=== PATIENT | female | born 1990 | race Caucasian/White ===

== ENCOUNTER 2016-06-25 12:20 | Emergency (ER) | payer OTHER ==
[2016-06-25] MEDS ORDERED: Ketorolac INJ* 60 MG/2 ML VIAL IM ONE (12:47)
--- NOTE | 2016-06-25 12:47 | UC ---
UC Dental HPI - HPI Summary HPI Summary: Right upper dental pain after eating this morning and getting food in a cavity - History of Current Complaint Chief Complaint: UCDentalProblem Stated Complaint: DENTAL COMPLAINT Time Seen by Provider: 06/25/16 12:33 Hx Obtained From: Patient Hx Last Menstrual Period: 03/15/2016 ?: No Onset/Duration: Sudden Onset, Lasting Hours - 4, Still Present Severity: Severe Pain Intensity: 8 Pain Scale Used: 0-10 Numeric Aggravating: Chewing Alleviating: Nothing - Tried 400 mg Ibuprofen this AM Related History: Previous Dental Care on Same Tooth - Allergies/Home Medications Allergies/Adverse Reactions: Allergies Allergy/AdvReac Type Severity Reaction Status Date / Time Latex Allergy Intermediate Hives Verified 06/25/16 12:53 Ciprofloxacin [From Cipro] Allergy Itching Verified 06/25/16 12:53 PMH/Surg Hx/FS Hx/Imm Hx Previously Healthy: No Endocrine History Of: Denies: Diabetes, Thyroid Disease Cardiovascular History Of: Denies: Cardiac Disorders, Hypertension, Pacemaker/ICD, Congestive Heart Failure Respiratory History Of: Reports: Asthma - albuterol MDI as needed Denies: COPD GI/ History Of: Denies: Gastroesophageal Reflux, Ulcer, Renal Disease Neurological History Of: Denies: CVA, Dementia, Seizures Psychological History Of: Reports: Anxiety, Depression - started celexa this Other History Of: Negative For: Anticoagulant Therapy - Surgical History Surgical History: Yes Surgery Procedure, Year, and Place: Gall Bladder. Tonsillectomy & Adenoidectomy. MOLE REMOVED FROM LOWER BACK - Family History Known Family History: Positive: Cardiac Disease, Hypertension - Social History Occupation: Employed Part-time - at [employer] Lives: With Family Alcohol Use: Occasionally Substance Use Type: None Smoking Status (MU): Never Smoked Tobacco Have You Smoked in the Last Year: No - Immunization History Most Recent Influenza Vaccination: 2014 Most Recent Tetanus Shot: 01/2012 Review of Systems Constitutional: Negative Skin: Negative Eyes: Negative ENT: Dental Pain Respiratory: Negative Cardiovascular: Negative Gastrointestinal: Negative Genitourinary: Negative Motor: Negative Neurovascular: Negative Musculoskeletal: Negative Neurological: Negative Psychological: Negative All Other Systems Reviewed And Are Negative: Yes Physical Exam Triage Information Reviewed: Yes Appearance: Well-Appearing, No Pain Distress, Well-Nourished Vital Signs Reviewed: Yes Eye Exam: Normal Eyes: Positive: Conjunctiva Clear ENT Exam: Normal ENT: Positive: Normal ENT inspection, Hearing grossly normal, Pharynx normal, TMs normal. Negative: Nasal congestion, Nasal drainage, Tonsillar swelling, Tonsillar exudate, Trismus, Muffled/hoarse voice Dental Exam: Other - braces on Dental: Positive: Gross Decay/Caries @ - right upper back. Negative: Abscess @ , Cellulitis @, Cervical Lymphadenopathy, Bleeding Neck exam: Normal Neck: Positive: Supple, Nontender, No Lymphadenopathy Respiratory Exam: Normal Respiratory: Positive: Chest non-tender, Lungs clear, Normal breath sounds, No respiratory distress Cardiovascular Exam: Normal Cardiovascular: Positive: RRR, No Murmur, Pulses Normal, Brisk Capillary Refill Musculoskeletal Exam: Normal Musculoskeletal: Positive: Strength Intact, ROM Intact, No Edema Neurological Exam: Normal Neurological: Positive: Alert, Muscle Tone Normal Psychological Exam: Normal Skin Exam: Normal Dental Complaint Course/Dx - Course Course Of Treatment: Pain control, follow with dentist CHANDLER, rest off work today - Differential Dx/Diagnosis Differential Diagnosis/Dx: Dental Caries, Gingivitis, Odontogenic Pain Provider Diagnoses: right upper molar dental pain and caries Discharge - Discharge Plan Condition: Stable Disposition: HOME Prescriptions: HYDROcodone/ACETAMIN 5-325 MG* [[place] 5-325 TAB*] 1 tab PO Q6H PRN #6 tab MDD 4 PRN Reason: pain Ibuprofen TAB* [Motrin TAB* 800 MG] 800 mg PO Q8H PRN #40 tab PRN Reason: Pain Patient Education Materials: Dental Caries (ED), Toothache (ED) Forms: *Work Release Referrals: Jabier Gamez MD [Primary Care Provider] - If Needed Additional Instructions: Follow with you dentist CHANDLER
[2016-06-25] MEDS ORDERED: HYDROcodone/ACETAMIN 5-325 MG* 1 TAB PO ONE (12:48)
[2016-06-25 12:53] VITALS: BP 121/75
== END 2016-06-25 13:46 | disposition home or self-care (01) ==
LOC: UCEAST 12:20
DX: K02.9 Dental caries, unspecified (principal); Z88.1 Allergy status to other antibiotic agents
CPT/HCPCS: 96372; 99212; G0463; J1885

== ENCOUNTER 2016-06-25 20:23 | Emergency (ER) | payer OTHER ==
[2016-06-25 20:38] VITALS: BP 124/81
--- NOTE | 2016-06-25 20:47 | UC ---
Dental HPI - HPI Summary HPI Summary: The patient comes in today for: 1. Dental pain: Onset: Started this morning. Palliative/provocative: Hot and cold liquids makes it worse. Vicodin helped. Quality: [place] Region: Upper right tooth pain. Severity: 03/04 Time: Constant. Associated symptoms: Previous treatment: She was seen today, this morning by Chrissy Patricio who gave her a ketoralac injection, and a prescription for hydrocodone/ acetaminophen and ibuprofen. She took 800 mg at 4 PM and and two of the hydrocodone/acetaminophen. Fever: None. Dental care: She was supposed to be seen today at 4 PM, but the dentist [facility] said she needed a root canal. But her insurance did not approve it. She wants to check to see if she can just get the tooth pulled at this point. * - History of Current Complaint Chief Complaint: UCDentalProblem Stated Complaint: DENTAL PAIN Time Seen by Provider: 06/25/16 20:39 Hx Obtained From: Patient Hx Last Menstrual Period: 05/31/16 ?: No - Allergies/Home Medications Allergies/Adverse Reactions: Allergies Allergy/AdvReac Type Severity Reaction Status Date / Time Latex Allergy Intermediate Hives Verified 06/25/16 20:38 Ciprofloxacin [From Cipro] Allergy Itching Verified 06/25/16 20:38 PMH/Surg Hx/FS Hx/Imm Hx Previously Healthy: No Endocrine History Of: Denies: Diabetes, Thyroid Disease, Hyperthyroidism, Hypothyroidism, Dyslipidemia Cardiovascular History Of: Denies: Cardiac Disorders, Hypertension, Pacemaker/ICD, Myocardial Infarction , Congestive Heart Failure, Atrial Fibrillation, Deep Vein Thrombosis, Bleeding Disorders Respiratory History Of: Reports: Asthma - albuterol MDI as needed Denies: COPD, Bronchitis, Pneumonia, Pulmonary Embolism GI/ History Of: Denies: Gastroesophageal Reflux, Ulcer, Gastrointestinal Bleed, Gall Bladder Disease, Kidney Stones, Diverticulitis, Renal Disease, Urosepsis Neurological History Of: Denies: TIA, CVA, Dementia, Seizures, Migraine Psychological History Of: Reports: Anxiety, Depression - started celexa this Denies: Bipolar Disorder, Schizophrenia, Post Traumatic Stress Disorder Cancer History Of: Denies: Lung Cancer, Colorectal Cancer, Breast Cancer, Prostate Cancer, Cervical Cancer Other History Of: Negative For: HIV, Hepatitis B, Hepatitis C, Anticoagulant Therapy - Surgical History Surgical History: Yes Surgery Procedure, Year, and Place: Gall Bladder. Tonsillectomy & Adenoidectomy. MOLE REMOVED FROM LOWER BACK - Family History Known Family History: Positive: Cardiac Disease, Hypertension - Social History Occupation: Employed Full-time Alcohol Use: Occasionally Substance Use Type: None Smoking Status (MU): Never Smoked Tobacco Have You Smoked in the Last Year: No - Immunization History Most Recent Influenza Vaccination: 2014 Most Recent Tetanus Shot: 01/2012 Review of Systems Constitutional: Negative Skin: Negative Eyes: Negative ENT: Negative Respiratory: Negative Cardiovascular: Negative Gastrointestinal: Negative Genitourinary: Negative All Other Systems Reviewed And Are Negative: Yes Physical Exam Triage Information Reviewed: Yes Appearance: Well-Appearing, Well-Nourished, Ill-Appearing, Pain Distress - She has reduced animation, and lack of facial expression. Vital Signs: Initial Vital Signs Temp 98.9 F 06/25/16 20:33 Pulse 102 06/25/16 20:33 Resp 20 06/25/16 20:33 BP 124/81 06/25/16 20:33 Pulse Ox 100 06/25/16 20:33 Vital Signs Reviewed: Yes Eyes: Positive: Conjunctiva Clear. Negative: Discharge ENT: Positive: Hearing grossly normal. Negative: Pharyngeal erythema, Nasal congestion, Nasal drainage, TM bulging, TM dull, TM red, Tonsillar swelling, Tonsillar exudate Dental: Positive: Other: - #3 tooth is tender to percussion. Filling seen.. Negative: Gross Decay/Caries @, Dental Fracture @ Neck: Positive: Supple, Nontender, No Lymphadenopathy, Nuchal Rigidity Respiratory: Positive: Lungs clear, No respiratory distress, No accessory muscle use. Negative: Crackles, Wheezing Cardiovascular: Positive: RRR, No Murmur Abdomen Description: Positive: Nontender, No Organomegaly, Soft. Negative: Distended, Guarding Musculoskeletal: Positive: Strength Intact, ROM Intact Neurological: Positive: Alert, Muscle Tone Normal Psychological: Positive: Normal Response To Family, Age Appropriate Behavior, Consolable Skin: Negative: rashes, breakdown Dental Complaint Course/Dx - Course Course Of Treatment: Patient was told that she will probably not be completely free of pain until she has definitive dental care of her tooth. She was told that one 800 mg ibuprofen will not reduce the swelling of the infected tooth and that she has to take it regularly. To get her started in edema reduction, she will be given an injection of solumedrol. She is to take the Augmentin and continue the ibuprofen to keep the inflammation reduced. It is too early to give her any more narcotic as she already took two hydrocodone/acetaminophen pills at 6 PM and the next one woudl not be due until midnight. - Differential Dx/Diagnosis Provider Diagnoses: Pulpitis of #3 tooth Discharge - Discharge Plan Condition: Stable Disposition: HOME Patient Education Materials: Toothache (ED) Additional Instructions: See your family dentist as soon as you can for definitive dental care.
[2016-06-25] MEDS ORDERED: Amoxicillin/Clavulanate TAB* 875 MG PO ONE (21:03)
[2016-06-25] MEDS ORDERED: methylPREDNISolone 125 MG* 2 ML VIAL IM ONE (21:03)
== END 2016-06-25 21:28 | disposition home or self-care (01) ==
LOC: UCEAST 20:23
DX: K04.01 Reversible pulpitis (principal)
CPT/HCPCS: 96372; 99212; A9270-GY; G0463; J2930

== ENCOUNTER 2016-07-18 08:51 | Emergency (ER) | payer OTHER ==
[2016-07-18 09:41] VITALS: BP 115/80
--- NOTE | 2016-07-18 11:08 | UC ---
- HPI Summary HPI Summary: TESTED POSITIVE FOR LAST WEEK. OVER LAST FOUR DAYS HAS HAD WORSENING ABDOMINAL CRAMPING. 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 Negative: Appetite, Back Pain, Fever, Genital Swelling or Blisters, Nausea, Vaginal Bleeding or Discharge, Vomiting - Assessment Hx Now: Yes SAB: 1 IEA: 0 Hx Hysterectomy: No - Additional Pertinent History Maternal Blood Type and Rh: O Positive - Allergies/Home Medications Allergies/Adverse Reactions: Allergies Allergy/AdvReac Type Severity Reaction Status Date / Time Latex Allergy Intermediate Hives Verified 06/25/16 20:38 Ciprofloxacin [From Cipro] Allergy Itching Verified 06/25/16 20:38 PMH/Surg Hx/FS Hx/Imm Hx Previously Healthy: Yes Endocrine/Hematology History: Denies: Hx Anticoagulant Therapy, Hx Diabetes, Hx Thyroid Disease Cardiovascular History: Denies: Hx Congestive Heart Failure, Hx Deep Vein Thrombosis, Hx Hypertension , Hx Myocardial Infarction, Hx Pacemaker/ICD Respiratory History: Reports: Hx Asthma - albuterol MDI as needed Denies: Hx Chronic Obstructive Pulmonary Disease (COPD), Hx Lung Cancer, Hx Pneumonia, Hx Pulmonary Embolism GI History: Denies: Hx Gall Bladder Disease, Hx Gastrointestinal Bleed, Hx Ulcer, Hx Urosepsis, Other GI Disorders History: Reports: Other Problems/Disorders - OVARIAN CYST Denies: Hx Kidney Stones, Hx Renal Disease Sensory History: Denies: Hx Hearing Aid Neurological History: Denies: Hx Dementia, Hx Migraine, Hx Seizures, Hx Transient Ischemic Attacks (TIA) Psychiatric History: Reports: Hx Anxiety, Hx Depression - started celexa this , Other Psychiatric Issues/Disorders - anxiety on celexa but pt inconsistant with taking Denies: Hx Panic Disorder, Hx Schizophrenia, Hx Bipolar Disorder, Hx Substance Abuse - Surgical History Surgery Procedure, Year, and Place: Gall Bladder. Tonsillectomy & Adenoidectomy. MOLE REMOVED FROM LOWER BACK - Immunization History Date of Tetanus Vaccine: Unknown Date of Influenza Vaccine: None Infectious Disease History: No Infectious Disease History: Denies: Hx Clostridium Difficile, Hx Hepatitis, Hx Human Immunodeficiency Virus (HIV), Hx of Known/Suspected MRSA, Hx Shingles, Hx Tuberculosis, Hx Known/ Suspected VRE, Hx Known/Suspected VRSA, History Other Infectious Disease, Traveled Outside the [place] in Last 30 Days - Family History Known Family History: Positive: Cardiac Disease, Hypertension - Social History Alcohol Use: Occasionally Substance Use Type: Reports: None Smoking Status (MU): Never Smoked Tobacco Have You Smoked in the Last Year: No Review of Systems Constitutional: Negative Skin: Negative Eyes: Negative ENT: Negative Respiratory: Negative Cardiovascular: Negative Gastrointestinal: Abdominal Pain Genitourinary: Urgency Motor: Negative Neurovascular: Negative Musculoskeletal: Negative Neurological: Negative Psychological: Negative All Other Systems Reviewed And Are Negative: Yes Physical Exam - Physical Exam Triage Information Reviewed: Yes Vital Signs Reviewed: Yes Appearance: Positive: Well-Appearing Eyes: Positive: Normal ENT: Positive: Normal ENT inspection, Pharynx normal, TMs normal Neck: Positive: Supple, Nontender, No Lymphadenopathy Respiratory/Lung Sounds: Positive: Clear to Auscultation, Breath Sounds Present , Decreased Breath Sounds Cardiovascular: Positive: Normal, RRR, Pulses are Symmetrical in both Upper and Lower Extremities Abdomen Description: Positive: No Organomegaly, Soft. Negative: Nontender - TENDERNESS AT SUPRAPUBIC ASPECT OF ABDOMEN, CVA Tenderness (R), CVA Tenderness ( L) Bowel Sounds: Positive: Present Musculoskeletal: Positive: Normal Neurological: Positive: Normal Psychiatric: Positive: Normal - Vaginal Assessment Presentation Comment: cephalic Course/Dx - Differential Diagnosis/HQI/PQRI: Missed , Spontaneous , Threatened , Ectopic , /Embryonic Demise, First Trimester Bleeding, Early , Round Ligament Pain, UTI - Diagnoses Provider Diagnoses: Urinary tract infection, Abdominal cramping - Provider Notifications Discussed Care Of Patient With: ALBAN JOY Time Discussed With Above Provider: 10:30 Instructed by Provider To: Will See In ED Discharge - Discharge Plan Condition: Stable Disposition: HOME Prescriptions: Nitrofurantoin Macrocrystals* [Macrodantin*] 100 mg PO BID #14 cap Patient Education Materials: Abdominal Pain (ED), Urinary Tract Infection in (ED) Referrals: Jabier Gamez MD [Primary Care Provider] -
== END 2016-07-18 10:44 | disposition home or self-care (01) ==
LOC: UCEAST 08:51
DX: O23.41 Unspecified infection of urinary tract in pregnancy, first trimester (principal); Z3A.00 Weeks of gestation of pregnancy not specified; Z88.1 Allergy status to other antibiotic agents; Z91.040 Latex allergy status; O34.81 Maternal care for other abnormalities of pelvic organs, first trimester; N94.89 Other specified conditions associated with female genital organs and menstrual cycle
CPT/HCPCS: 81002; 81025; 87086; 99212; G0463

== ENCOUNTER 2016-07-18 11:04 | Emergency (ER) | payer OTHER ==
[2016-07-18] MEDS ORDERED: NS 0.9% 1000 ML* 1,000 ML IV ONE (12:20)
[2016-07-18] MEDS ORDERED: HYDROcodone/ACETAMIN 5-325 MG* 1 TAB PO ONE (12:37)
[2016-07-18] MEDS ORDERED: Metoclopramide IV* 5 MG/ML 2 ML VIAL IV ONE (12:38)
[2016-07-18 12:52] LABS: Urine Bacteria Absent (Absent); Urine Bilirubin Negative (Negative); Urine Glucose Negative (Negative); Urine Nitrite Negative (Negative)
[2016-07-18 13:43] LABS: Hematocrit 41 % (35-47); Hemoglobin 13.9 g/dl (12.0-16.0); Mean Corpuscular HGB Conc 34 g/dl (31-36); Mean Corpuscular Hemoglobin 30 pg (27-31); Mean Corpuscular Volume 90 fL (80-97); Mean Platelet Volume 9 um3 (7.4-10.4); Red Blood Count 4.62 10^6/ul (4.0-5.4); Red Cell Distribution Width 14 % (10.5-15); White Blood Count 8.2 10^3/ul (3.5-10.8)
--- NOTE | 2016-07-18 13:48 | RAD ---
HISTORY: Vaginal bleeding, early COMPARISONS: December 16, 2014 TECHNIQUE: Multiple transverse and longitudinal ultrasound images were obtained of the pelvis using grayscale, color Doppler, spectral Doppler imaging and M-Mode Doppler imaging using the endovaginal transducer. FINDINGS: UTERUS: The uterus is normal in shape, size, contour, and echotexture. GESTATION: There is a single live intrauterine gestation. The crown-rump length measures 0.25 cm for a gestational age of 5 weeks and 6 days. The HERI is March 11, 2017. cardiac motion is detected at a rate of 111 beats per minute. Gross movement is identified. anatomy cannot be assessed secondary to early dates. The amniotic fluid is qualitatively normal. There is small subchorionic hemorrhage measuring 1.5 x 0.4 x 0.8 CUL-DE-SAC: There is no free fluid within the cul-de-sac. RIGHT OVARY: The right ovary measures 2.3 x 1.3 x 1.6 cm. Normal arterial and venous waveforms are identifiable within the ovary on spectral Doppler imaging. LEFT OVARY: The left ovary measures 3.4 x 2.4 x 2.7 cm. Normal arterial and venous waveforms are identifiable within the ovary on spectral Doppler imaging. An involuting follicular cyst is noted measuring 1.9 cm. BLADDER: The bladder is not well visualized. IMPRESSION: 1. SINGLE LIVE INTRAUTERINE GESTATION AT 5 WEEKS AND 6 DAYS BY CROWN-RUMP LENGTH. 2. SMALL SUBCHORIONIC HEMORRHAGE
[2016-07-18 14:05] LABS: Albumin 3.8 g/dL (3.2-5.2); BUN/Creatinine Ratio 13.1 (8-20); C Reactive Protein 13.75 mg/L (< 5.00); Calcium 8.9 mg/dL (8.6-10.3); EGFR African American 152.5 (>60); EGFR Non-African American 118.6 (>60); Potassium 3.7 mmol/L (3.5-5.0); Total Bilirubin 0.4 mg/dL (0.2-1.0); Total Protein 6.8 g/dL (6.4-8.9)
[2016-07-18 14:20] VITALS: BP 100/72
--- NOTE | 2016-07-18 14:38 | ED ---
Yuval Lan Billy, scribed for Gonzalo Chowdary MD on 07/18/16 at 1242 . Complex/Multi-Sys Presentation - HPI Summary HPI Summary: Patient is a 25 y/o female coming to [facility] presenting with progressive, constant , suprapubic abdominal cramping for the last 3 days. Pain severity 8/10. Patient reports constant nausea but denies any fever or flank pain. Clear vaginal discharge. Patient states her urine was positive for UTI at [facility] although she denies any dysuria. She has had UTIs in the past and states that abdominal cramping has typically not been unassociated with previous UTI. She states she had spotting last week, which has since spontaneously resolved. Positive test 07/03/16 at home and at the [facility]. LMP unknown, although patient believes it may have been in April or May. Patient states she has been on augmentin for the last 2 weeks to treat a right upper premolar infection; she has an appointment on 07/24/2016 to have the tooth removed. PSHx cholecystectomy. Denies any prior c-sections. A1. - History Of Current Complaint Chief Complaint: EDOBProblems Time Seen by Provider: 07/18/16 12:21 Hx Obtained From: Patient Onset/Duration: Gradual Onset, Lasting Days, Still Present Timing: Constant Severity Currently: Moderate Severity Initially: Moderate Location: Pain At: - suprapubic pain Aggravating Factor(s): none Alleviating Factor(s): none Associated Signs And Symptoms: Positive: Nausea, Abdominal Pain, Other - clear vaginal discharge. Negative: Back Pain, Dysuria, Fever - Allergies/Home Medications Allergies/Adverse Reactions: Allergies Allergy/AdvReac Type Severity Reaction Status Date / Time Latex Allergy Intermediate Hives Verified 06/25/16 20:38 Ciprofloxacin [From Cipro] Allergy Itching Verified 06/25/16 20:38 PMH/Surg Hx/FS Hx/Imm Hx Endocrine/Hematology History: Denies: Hx Anticoagulant Therapy, Hx Diabetes, Hx Thyroid Disease Cardiovascular History: Denies: Hx Congestive Heart Failure, Hx Deep Vein Thrombosis, Hx Hypertension , Hx Myocardial Infarction, Hx Pacemaker/ICD Respiratory History: Reports: Hx Asthma - albuterol MDI as needed Denies: Hx Chronic Obstructive Pulmonary Disease (COPD), Hx Lung Cancer, Hx Pneumonia, Hx Pulmonary Embolism GI History: Denies: Hx Gall Bladder Disease, Hx Gastrointestinal Bleed, Hx Ulcer, Hx Urosepsis, Other GI Disorders History: Reports: Other Problems/Disorders - OVARIAN CYST Denies: Hx Kidney Stones, Hx Renal Disease Sensory History: Denies: Hx Hearing Aid Neurological History: Denies: Hx Dementia, Hx Migraine, Hx Seizures, Hx Transient Ischemic Attacks (TIA) Psychiatric History: Reports: Hx Anxiety, Hx Depression - started celexa this , Other Psychiatric Issues/Disorders - anxiety on celexa but pt inconsistant with taking Denies: Hx Panic Disorder, Hx Schizophrenia, Hx Bipolar Disorder, Hx Substance Abuse - Surgical History Surgery Procedure, Year, and Place: Gall Bladder. Tonsillectomy & Adenoidectomy. MOLE REMOVED FROM LOWER BACK - Immunization History Date of Tetanus Vaccine: Unknown Date of Influenza Vaccine: None Infectious Disease History: No Infectious Disease History: Denies: Hx Clostridium Difficile, Hx Hepatitis, Hx Human Immunodeficiency Virus (HIV), Hx of Known/Suspected MRSA, Hx Shingles, Hx Tuberculosis, Hx Known/ Suspected VRE, Hx Known/Suspected VRSA, History Other Infectious Disease, Traveled Outside the [place] in Last 30 Days - Family History Known Family History: Positive: Cardiac Disease, Hypertension - Social History Alcohol Use: Occasionally Substance Use Type: Reports: None Smoking Status (MU): Never Smoked Tobacco Have You Smoked in the Last Year: No Review of Systems Negative: Fever Positive: Dental Pain Positive: Abdominal Pain, Nausea Positive: discharge. Negative: dysuria, flank pain All Other Systems Reviewed And Are Negative: Yes Physical Exam Triage Information Reviewed: Yes Vital Signs On Initial Exam: Initial Vitals Temp Pulse Resp BP Pulse Ox 98.5 F 106 18 124/70 100 07/18/16 11:06 07/18/16 11:06 07/18/16 11:06 07/18/16 11:06 07/18/16 11:06 Vital Signs Reviewed: Yes Appearance: Positive: Well-Appearing, Pain Distress - mild Skin: Positive: Warm, Skin Color Reflects Adequate Perfusion, Dry Head/Face: Positive: Normal Head/Face Inspection Eyes: Positive: EOMI, YUKI ENT: Positive: Normal ENT inspection Dental: Positive: Other - Right upper rear molar has several fillings, tender to palpation and percussion. Neck: Positive: Supple, Nontender Respiratory/Lung Sounds: Positive: Clear to Auscultation, Breath Sounds Present Cardiovascular: Positive: Tachycardia Abdomen Description: Positive: Other: - Mild suprapubic tenderness.. Negative: CVA Tenderness (R), CVA Tenderness (L) Bowel Sounds: Positive: Present Musculoskeletal: Positive: Normal, Strength/ROM Intact Neurological: Positive: Normal, Sensory/Motor Intact, Alert, Oriented to Person Place, Time Psychiatric: Positive: Affect/Mood Appropriate Diagnostics - Vital Signs Vital Signs Temp Pulse Resp BP Pulse Ox 07/18/16 11:06 98.5 F 106 18 124/70 100 - Laboratory Lab Results: Lab Results 07/18/16 07/18/16 07/18/16 Range/Units 12:14 13:30 13:30 WBC 8.2 (3.5-10.8) 10^3/ul RBC 4.62 (4.0-5.4) 10^6/ul Hgb 13.9 (12.0-16.0) g/dl Hct 41 (35-47) % MCV 90 (80-97) fL MCH 30 (27-31) pg MCHC 34 (31-36) g/dl RDW 14 (10.5-15) % Plt Count 218 (150-450) 10^3/ul MPV 9 (7.4-10.4) um3 Neut % (Auto) 74.6 (38-83) % Lymph % (Auto) 16.4 L (25-47) % [place] % (Auto) 7.3 (1-9) % Eos % (Auto) 1.2 (0-6) % Baso % (Auto) 0.5 (0-2) % Absolute Neuts (auto) 6.1 (1.5-7.7) 10^3/ul Absolute Lymphs (auto) 1.3 (1.0-4.8) 10^3/ul Absolute Monos (auto) 0.6 (0-0.8) 10^3/ul Absolute Eos (auto) 0.1 (0-0.6) 10^3/ul Absolute Basos (auto) 0 (0-0.2) 10^3/ul Absolute Nucleated RBC 0 10^3/ul Nucleated RBC % 0 INR (Anticoag Therapy) 0.90 (0.89-1.11) APTT 27.0 (26.0-36.3) seconds Sodium (133-145) mmol/L Potassium (3.5-5.0) mmol/L Chloride (101-111) mmol/L Carbon Dioxide (22-32) mmol/L Anion Gap (2-11) mmol/L BUN (6-24) mg/dL Creatinine (0.51-0.95) mg/dL Est GFR ( Amer) (>60) Est GFR (Non-Af Amer) (>60) BUN/Creatinine Ratio (8-20) Glucose (70-100) mg/dL Calcium (8.6-10.3) mg/dL Total Bilirubin (0.2-1.0) mg/dL AST (13-39) U/L ALT (7-52) U/L Alkaline Phosphatase (34-104) U/L C-Reactive Protein (< 5.00) mg/L Total Protein (6.4-8.9) g/dL Albumin (3.2-5.2) g/dL Globulin (2-4) g/dL Albumin/Globulin Ratio (1-3) Beta HCG, Quant mIU/mL Urine Color Yellow Urine Appearance Clear Urine pH 6.0 (5-9) Ur Specific [place] 1.011 (1.010-1.030) Urine Protein Negative (Negative) Urine Ketones Negative (Negative) Urine Blood 1+ H (Negative) Urine Nitrate Negative (Negative) Urine Bilirubin Negative (Negative) Urine Urobilinogen Negative (Negative) Ur Leukocyte Esterase 2+ H (Negative) Urine WBC (Auto) 1+(6-10/hpf) H (Absent) Urine RBC (Auto) Trace(0-2/hpf) (Absent) Ur Squamous Epith Cells Present H (Absent) Urine Bacteria Absent (Absent) Urine Glucose Negative (Negative) 07/18/16 Range/Units 13:30 WBC (3.5-10.8) 10^3/ul RBC (4.0-5.4) 10^6/ul Hgb (12.0-16.0) g/dl Hct (35-47) % MCV (80-97) fL MCH (27-31) pg MCHC (31-36) g/dl RDW (10.5-15) % Plt Count (150-450) 10^3/ul MPV (7.4-10.4) um3 Neut % (Auto) (38-83) % Lymph % (Auto) (25-47) % [place] % (Auto) (1-9) % Eos % (Auto) (0-6) % Baso % (Auto) (0-2) % Absolute Neuts (auto) (1.5-7.7) 10^3/ul Absolute Lymphs (auto) (1.0-4.8) 10^3/ul Absolute Monos (auto) (0-0.8) 10^3/ul Absolute Eos (auto) (0-0.6) 10^3/ul Absolute Basos (auto) (0-0.2) 10^3/ul Absolute Nucleated RBC 10^3/ul Nucleated RBC % INR (Anticoag Therapy) (0.89-1.11) APTT (26.0-36.3) seconds Sodium 135 (133-145) mmol/L Potassium 3.7 (3.5-5.0) mmol/L Chloride 106 (101-111) mmol/L Carbon Dioxide 23 (22-32) mmol/L Anion Gap 6 (2-11) mmol/L BUN 8 (6-24) mg/dL Creatinine 0.61 (0.51-0.95) mg/dL Est GFR ( Amer) 152.5 (>60) Est GFR (Non-Af Amer) 118.6 (>60) BUN/Creatinine Ratio 13.1 (8-20) Glucose 81 (70-100) mg/dL Calcium 8.9 (8.6-10.3) mg/dL Total Bilirubin 0.40 (0.2-1.0) mg/dL AST 21 (13-39) U/L ALT 23 (7-52) U/L Alkaline Phosphatase 74 (34-104) U/L C-Reactive Protein 13.75 H (< 5.00) mg/L Total Protein 6.8 (6.4-8.9) g/dL Albumin 3.8 (3.2-5.2) g/dL Globulin 3.0 (2-4) g/dL Albumin/Globulin Ratio 1.3 (1-3) Beta HCG, Quant 18184.00 mIU/mL Urine Color Urine Appearance Urine pH (5-9) Ur Specific [place] (1.010-1.030) Urine Protein (Negative) Urine Ketones (Negative) Urine Blood (Negative) Urine Nitrate (Negative) Urine Bilirubin (Negative) Urine Urobilinogen (Negative) Ur Leukocyte Esterase (Negative) Urine WBC (Auto) (Absent) Urine RBC (Auto) (Absent) Ur Squamous Epith Cells (Absent) Urine Bacteria (Absent) Urine Glucose (Negative) Result Diagrams: 07/18/16 13:30 07/18/16 13:30 Lab Statement: Any lab studies that have been ordered have been reviewed, and results considered in the medical decision making process. - Ultrasound No standard instances Ultrasound Interpretation Completed By: Radiologist - TRANSVAGINAL ULTRASOUND: 1. SINGLE LIVE INTRAUTERINE GESTATION AT 5 WEEKS AND 6 DAYS BY CROWN-RUMP LENGTH. 2. 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 DISCHARGE HOME STABLE. - Diagnoses Provider Diagnoses: Vaginal bleeding in patient at less than 20 weeks gestation, UTI ( urinary tract infection) Discharge - Discharge Plan Condition: Stable Disposition: HOME Patient Education Materials: Threatened Miscarriage (ED), Urinary Tract Infection in Women (ED) Referrals: Jabier Gamez MD [Primary Care Provider] - Additional Instructions: FOLLOW UP WITH YOUR DOCTOR. RETURN TO THE EMERGENCY DEPARTMENT FOR ANY WORSENING OF YOUR CONDITION; PAIN, FEVER, YOU FEEL ILL, VAGINAL DISCHARGE OR QUESTIONS OR CONCERNS. The documentation as recorded by the Yuval cueva Billy accurately reflects the service I personally performed and the decisions made by me, Gonzalo Chowdary MD.
== END 2016-07-18 14:18 | disposition home or self-care (01) ==
LOC: ED 11:04
DX: O20.9 Hemorrhage in early pregnancy, unspecified (principal); Z3A.01 Less than 8 weeks gestation of pregnancy; N39.0 Urinary tract infection, site not specified; R10.84 Generalized abdominal pain; R11.0 Nausea; K08.89 Other specified disorders of teeth and supporting structures
CPT/HCPCS: 36415; 76817; 80053; 81003; 81015; 84702; 85025; 85610; 85730; 86140; 96374; 99282; J2765

== ENCOUNTER 2016-08-10 09:39 | Emergency (ER) | payer OTHER ==
[2016-08-10 09:59] VITALS: BP 127/69
--- NOTE | 2016-08-10 10:14 | UC ---
Dental HPI - HPI Summary HPI Summary: [facility] Reference #: [id number] - History of Current Complaint Chief Complaint: UCDentalProblem Stated Complaint: DENTAL PAIN Time Seen by Provider: 08/10/16 09:42 Hx Obtained From: Patient Hx Last Menstrual Period: current ?: No Onset/Duration: Gradual Onset - started 1 week ago with R upper toothache, yesterday she developed swelling R upper gum and face, very painful. has DDS appointment already scheduled for end of month Severity: Severe Aggravating: Heat, Cold, Chewing Alleviating: Nothing - tried ibuprofen and tylenol w/o relief - Allergies/Home Medications Allergies/Adverse Reactions: Allergies Allergy/AdvReac Type Severity Reaction Status Date / Time Latex Allergy Intermediate Hives Verified 08/10/16 09:59 Ciprofloxacin [From Cipro] Allergy Itching Verified 08/10/16 09:59 PMH/Surg Hx/FS Hx/Imm Hx Previously Healthy: Yes Endocrine History Of: Denies: Diabetes, Thyroid Disease, Hyperthyroidism, Hypothyroidism, Dyslipidemia Cardiovascular History Of: Denies: Cardiac Disorders, Hypertension, Pacemaker/ICD, Myocardial Infarction , Congestive Heart Failure, Atrial Fibrillation, Deep Vein Thrombosis, Bleeding Disorders Respiratory History Of: Reports: Asthma - albuterol MDI as needed Denies: COPD, Bronchitis, Pneumonia, Pulmonary Embolism GI/ History Of: Denies: Gastroesophageal Reflux, Ulcer, Gastrointestinal Bleed, Gall Bladder Disease, Kidney Stones, Diverticulitis, Renal Disease, Urosepsis Neurological History Of: Denies: TIA, CVA, Dementia, Seizures, Migraine Psychological History Of: Reports: Anxiety, Depression - started celexa this Denies: Bipolar Disorder, Schizophrenia, Post Traumatic Stress Disorder Cancer History Of: Denies: Lung Cancer, Colorectal Cancer, Breast Cancer, Prostate Cancer, Cervical Cancer Other History Of: Negative For: HIV, Hepatitis B, Hepatitis C, Anticoagulant Therapy - Surgical History Surgical History: Yes Surgery Procedure, Year, and Place: Gall Bladder. Tonsillectomy & Adenoidectomy. MOLE REMOVED FROM LOWER BACK - Family History Known Family History: Positive: Cardiac Disease, Hypertension - Social History Occupation: Employed Full-time - [employer] Lives: With Family Alcohol Use: Occasionally Substance Use Type: None Smoking Status (MU): Never Smoked Tobacco Have You Smoked in the Last Year: No - Immunization History Most Recent Influenza Vaccination: 2014 Most Recent Tetanus Shot: 01/2012 Review of Systems Constitutional: Fever ENT: Dental Pain Respiratory: Negative Cardiovascular: Negative Gastrointestinal: Negative Neurological: Negative Psychological: Negative All Other Systems Reviewed And Are Negative: Yes Physical Exam Triage Information Reviewed: Yes Appearance: Well-Appearing, Well-Nourished, Pain Distress - quiet, painful to open mouth Vital Signs: Initial Vital Signs Temp 99.1 F 08/10/16 09:55 Pulse 100 08/10/16 09:55 Resp 14 08/10/16 09:55 BP 127/69 08/10/16 09:55 Pulse Ox 99 08/10/16 09:55 Vital Signs Reviewed: Yes Dental: Positive: Gross Decay/Caries @, Abscess @ - upper R molar Neck exam: Normal Neck: Positive: No Lymphadenopathy Respiratory Exam: Normal Cardiovascular Exam: Normal Neurological Exam: Normal Psychological Exam: Normal Skin Exam: Normal Dental Complaint Course/Dx - Differential Dx/Diagnosis Differential Diagnosis/Dx: Dental Abscess, Dental Caries, Fractured Tooth Provider Diagnoses: dental abscess Discharge - Discharge Plan Condition: Stable Disposition: HOME Prescriptions: Acetaminop/Codeine 30 MG TAB* [Tylenol/Codeine 30 MG TAB*] 1 - 2 tab PO Q6H PRN #16 tab MDD 8 PRN Reason: Pain Clindamycin CAP* [Cleocin 150 MG CAP*] 150 mg PO QID #28 cap Patient Education Materials: Dental Abscess (ED) Forms: *Gen. Provider Communication, *Work Release Referrals: Jabier Gamez MD [Primary Care Provider] - Additional Instructions: use medication as prescribed and follow-up with dentist as scheduled at end of month
== END 2016-08-10 10:25 | disposition home or self-care (01) ==
LOC: UCEAST 09:39
DX: K04.7 Periapical abscess without sinus (principal); Z88.1 Allergy status to other antibiotic agents; Z90.49 Acquired absence of other specified parts of digestive tract
CPT/HCPCS: 99212; G0463

== ENCOUNTER 2016-08-29 11:08 | Emergency (ER) | payer OTHER ==
[2016-08-29 12:17] VITALS: BP 113/82
--- NOTE | 2016-08-29 12:31 | UC ---
FLU HPI - HPI Summary HPI Summary: cough congestion ear and nasal pain for 2 days - History of Current Complaint Chief Complaint: UCGeneralIllness Stated Complaint: COUGH,CHEST/HEAD CONGESTION Time Seen by Provider: 08/29/16 12:30 Hx Obtained From: Patient Hx Last Menstrual Period: 08/28/16 ?: No Onset/Duration: Sudden Onset, Lasting Days - 2, Still Present Severity Currently: Mild Severity Initially: Mild Pain Intensity: 4 Pain Scale Used: 0-10 Numeric Associated Signs & Symptoms: Positive: Fever, Myalgia, Cough, Sore Throat, Nasal Congestion, Headache - Allergy/Home Medications Allergies/Adverse Reactions: Allergies Allergy/AdvReac Type Severity Reaction Status Date / Time Latex Allergy Intermediate Hives Verified 08/29/16 12:17 Ciprofloxacin [From Cipro] Allergy Itching Verified 08/29/16 12:17 Home Medications: Home Medications Acetaminophen 2 tab PO Q6HR 08/29/16 [History Confirmed 08/29/16] Ibuprofen [Advil] 800 mg PO Q8HR PRN 08/29/16 [History Confirmed 08/29/16] PMH/Surg Hx/FS Hx/Imm Hx Previously Healthy: No Endocrine History Of: Denies: Diabetes, Thyroid Disease, Hyperthyroidism, Hypothyroidism, Dyslipidemia Cardiovascular History Of: Denies: Cardiac Disorders, Hypertension, Pacemaker/ICD, Myocardial Infarction , Congestive Heart Failure, Atrial Fibrillation, Deep Vein Thrombosis, Bleeding Disorders Respiratory History Of: Reports: Asthma - albuterol MDI as needed Denies: COPD, Bronchitis, Pneumonia, Pulmonary Embolism GI/ History Of: Denies: Gastroesophageal Reflux, Ulcer, Gastrointestinal Bleed, Gall Bladder Disease, Kidney Stones, Diverticulitis, Renal Disease, Urosepsis Neurological History Of: Denies: TIA, CVA, Dementia, Seizures, Migraine Psychological History Of: Reports: Anxiety, Depression - started celexa this Denies: Bipolar Disorder, Schizophrenia, Post Traumatic Stress Disorder Cancer History Of: Denies: Lung Cancer, Colorectal Cancer, Breast Cancer, Prostate Cancer, Cervical Cancer Other History Of: Negative For: HIV, Hepatitis B, Hepatitis C, Anticoagulant Therapy - Surgical History Surgical History: Yes Surgery Procedure, Year, and Place: Gall Bladder. Tonsillectomy & Adenoidectomy. MOLE REMOVED FROM LOWER BACK - Family History Known Family History: Positive: Cardiac Disease, Hypertension - Social History Occupation: Employed Full-time Lives: With Family Alcohol Use: Occasionally Substance Use Type: None Smoking Status (MU): Never Smoked Tobacco Have You Smoked in the Last Year: No - Immunization History Most Recent Influenza Vaccination: Not UTD Most Recent Tetanus Shot: 01/2012 Review of Systems Constitutional: Chills, Fatigue Skin: Negative Eyes: Negative ENT: Sore Throat, Ear Ache, Nasal Discharge Respiratory: Negative Cardiovascular: Negative Gastrointestinal: Negative Genitourinary: Negative Motor: Negative Neurovascular: Negative Musculoskeletal: Negative Neurological: Negative Psychological: Negative All Other Systems Reviewed And Are Negative: Yes Physical Exam Triage Information Reviewed: Yes Appearance: Well-Appearing, No Pain Distress, Well-Nourished Vital Signs: Initial Vital Signs Temp 98.4 F 08/29/16 12:13 Pulse 99 08/29/16 12:13 Resp 18 08/29/16 12:13 BP 113/82 08/29/16 12:13 Pulse Ox 100 08/29/16 12:13 Vital Signs Reviewed: Yes Eye Exam: Normal Eyes: Positive: Conjunctiva Clear ENT Exam: Normal ENT: Positive: Normal ENT inspection, Hearing grossly normal, Pharynx normal, Nasal congestion, TMs normal. Negative: Nasal drainage, Tonsillar swelling, Tonsillar exudate, Trismus, Muffled/hoarse voice Dental Exam: Normal Neck exam: Normal Neck: Positive: Supple, Nontender, No Lymphadenopathy Respiratory Exam: Normal Respiratory: Positive: Chest non-tender, Lungs clear, Normal breath sounds, No respiratory distress, No accessory muscle use Cardiovascular Exam: Normal Cardiovascular: Positive: RRR, No Murmur, Pulses Normal, Brisk Capillary Refill Musculoskeletal Exam: Normal Musculoskeletal: Positive: Strength Intact, ROM Intact, No Edema Neurological Exam: Normal Psychological Exam: Normal Skin Exam: Normal Diagnostics - Laboratory Diagnostic Studies Completed/Ordered: influenza A/B (-) Flu Course/Dx - Course Course Of Treatment: tylenol, ibuprofen, increase fluids, otc cough relivers, follow with PCP - Differential Dx/Diagnosis Differential Diagnosis/HQI/PQRI: Influenza, Upper Respiratory Infection Provider Diagnoses: URI, Nasal COngestion Discharge - Discharge Plan Condition: Stable Disposition: HOME Prescriptions: Fluticasone NASAL SPRAY 50MCG* [Flonase NASAL SPRAY 50MCG*] 2 spray BOTH NARES DAILY #1 btl Patient Education Materials: Viral Syndrome (ED), How to Use Nasal [place] (ED) Referrals: Jabier Gamez MD [Primary Care Provider] - 4 Days
[2016-08-29] MEDS ORDERED: Acetaminophen TAB* 325 MG PO ONE (12:35)
== END 2016-08-29 13:42 | disposition home or self-care (01) ==
LOC: UCEAST 11:08
DX: J06.9 Acute upper respiratory infection, unspecified (principal); R09.81 Nasal congestion; Z88.1 Allergy status to other antibiotic agents
CPT/HCPCS: 87502; 99212; A9270-GY; G0463

== ENCOUNTER 2016-09-16 09:26 | Emergency (ER) | payer OTHER ==
--- NOTE | 2016-09-16 10:31 | UC ---
Lower Extremity/Ankle HPI - HPI Summary HPI Summary: Patient injured the right foot about a week ago, not sure exactly what happened , pain runs along the medial side of foot, over the maleolus and up to the lower leg. weight bearing is painful - History of Current Complaint Hx Obtained From: Patient Hx Last Menstrual Period: depo august 2016 ?: No Onset/Duration: Sudden Onset, Lasting Days Severity Initially: Moderate Severity Currently: Moderate Aggravating Factor(s): Standing, Ambulation Alleviating Factor(s): Rest Able to Bear Weight: Yes <Beth Dugan - Last Filed: 09/16/16 11:15> <Verna Sam - Last Filed: 09/16/16 12:43> - History of Current Complaint Chief Complaint: UCLowerExtremity Stated Complaint: FOOT PAIN Time Seen by Provider: 09/16/16 10:14 - Allergies/Home Medications Allergies/Adverse Reactions: Allergies Allergy/AdvReac Type Severity Reaction Status Date / Time Latex Allergy Intermediate Hives Verified 09/16/16 09:53 Ciprofloxacin [From Cipro] Allergy Itching Verified 09/16/16 09:53 PMH/Surg Hx/FS Hx/Imm Hx Previously Healthy: Yes Endocrine History Of: Denies: Diabetes, Thyroid Disease, Hyperthyroidism, Hypothyroidism, Dyslipidemia Cardiovascular History Of: Denies: Cardiac Disorders, Hypertension, Pacemaker/ICD, Myocardial Infarction , Congestive Heart Failure, Atrial Fibrillation, Deep Vein Thrombosis, Bleeding Disorders Respiratory History Of: Reports: Asthma - albuterol MDI as needed Denies: COPD, Bronchitis, Pneumonia, Pulmonary Embolism GI/ History Of: Denies: Gastroesophageal Reflux, Ulcer, Gastrointestinal Bleed, Gall Bladder Disease, Kidney Stones, Diverticulitis, Renal Disease, Urosepsis Neurological History Of: Denies: TIA, CVA, Dementia, Seizures, Migraine Psychological History Of: Reports: Anxiety, Depression - started celexa this Denies: Bipolar Disorder, Schizophrenia, Post Traumatic Stress Disorder Cancer History Of: Denies: Lung Cancer, Colorectal Cancer, Breast Cancer, Prostate Cancer, Cervical Cancer Other History Of: Negative For: HIV, Hepatitis B, Hepatitis C, Anticoagulant Therapy - Surgical History Surgical History: Yes Surgery Procedure, Year, and Place: Gall Bladder. Tonsillectomy & Adenoidectomy. MOLE REMOVED FROM LOWER BACK - Family History Known Family History: Positive: Cardiac Disease, Hypertension - Social History Alcohol Use: Occasionally Substance Use Type: None Smoking Status (MU): Never Smoked Tobacco Have You Smoked in the Last Year: No - Immunization History Most Recent Influenza Vaccination: Not UTD Most Recent Tetanus Shot: 01/2012 <Beth Dugan - Last Filed: 09/16/16 11:15> Review of Systems Constitutional: Negative Skin: Negative Eyes: Negative ENT: Negative Respiratory: Negative Cardiovascular: Negative Gastrointestinal: Negative Genitourinary: Negative Motor: Negative Neurovascular: Negative Musculoskeletal: Arthralgia, Calf Tenderness, Decreased ROM, Myalgia Neurological: Negative Psychological: Negative All Other Systems Reviewed And Are Negative: Yes <Beth Dugan - Last Filed: 09/16/16 11:15> Physical Exam Triage Information Reviewed: Yes Appearance: Well-Nourished, Ill-Appearing, Pain Distress Vital Signs Reviewed: Yes Eye Exam: Normal Eyes: Positive: Conjunctiva Clear ENT Exam: Normal ENT: Positive: Hearing grossly normal, Pharynx normal, TMs normal Dental Exam: Normal Neck exam: Normal Neck: Positive: Supple, Nontender, No Lymphadenopathy Respiratory Exam: Normal Respiratory: Positive: Chest non-tender, Lungs clear, Normal breath sounds Cardiovascular Exam: Normal Cardiovascular: Positive: RRR, No Murmur, Pulses Normal Abdominal Exam: Normal Abdomen Description: Positive: Nontender, No Organomegaly, Soft Bowel Sounds: Positive: Present Musculoskeletal: Positive: Strength Limited @ - with toe raises,, ROM Limited @ - right pronation and supination Neurological Exam: Normal Neurological: Positive: Alert, Muscle Tone Normal, Other: - good sensation and color Psychological Exam: Normal Skin Exam: Normal <Beth Dugan - Last Filed: 09/16/16 11:15> Lower Extremity Course/Dx - Course Course Of Treatment: hx obtained, exam performed, meds reviewed, xray ordered, patient took motrin prior to arrival, treated for a muscle strain - Differential Dx/Diagnosis Differential Diagnosis/HQI/PQRI: Arthritis, Compartment Syndrome, Contusion, Dislocation, Fracture (Closed), Sprain, Strain Provider Diagnoses: soleus strain. ankle pain <Beth Dugan - Last Filed: 09/16/16 11:15> Discharge <Beth Dugan - Last Filed: 09/16/16 11:15> <Verna Sam - Last Filed: 09/16/16 12:43> - Discharge Plan Condition: Stable Disposition: HOME Patient Education Materials: Muscle Strain (ED) Forms: *Work Release Referrals: Jabier Gamez MD [Primary Care Provider] - Additional Instructions: There was no fracture or dislocation of the lower leg and ankle. Your pain seems to be muscular in nature. Continue with ibuprofen, warm soaks, or hot packs the the inside of the ankle and up the foot. Good foot wear and mild stretching, Stay off your foot for the next 48 hours to rest. Attestation Statement User Type: Provider - I was available for consult. This patient was seen by the MIRTHA. The patient was not presented to, seen by, or examined by me. <Verna Sam - Last Filed: 09/16/16 12:43>
--- NOTE | 2016-09-16 11:17 | RAD ---
INDICATION: Medial ankle pain. No known injury COMPARISON: None TECHNIQUE: AP, lateral, and oblique views were obtained. FINDINGS: The bony structures, joint spaces, and soft tissues are normal for age. IMPRESSION: NEGATIVE EXAMINATION.
== END 2016-09-16 11:24 | disposition home or self-care (01) ==
LOC: UCEAST 09:26
DX: S96.911A Strain of unspecified muscle and tendon at ankle and foot level, right foot, initial encounter (principal); J45.909 Unspecified asthma, uncomplicated; M25.571 Pain in right ankle and joints of right foot; F41.9 Anxiety disorder, unspecified; F32.9 Major depressive disorder, single episode, unspecified; Z88.3 Allergy status to other anti-infective agents; Z91.040 Latex allergy status; X58.XXXA Exposure to other specified factors, initial encounter
CPT/HCPCS: 99211; G0463

== ENCOUNTER 2016-10-08 08:46 | Emergency (ER) | payer OTHER ==
[2016-10-08 09:10] VITALS: BP 115/81
[2016-10-08] MEDS ORDERED: Lidocaine 1% MPF* 2 ML VIAL INJ ONE (10:17)
[2016-10-08] MEDS ORDERED: cefTRIAXone VIAL(*) 250 MG VIAL IM ONE (10:17)
--- NOTE | 2016-10-08 13:18 | UC ---
Roslyn Lan Matthew, scribed for Jami Garcia MD on 10/08/16 at 1310 . Complaint Female HPI - HPI Summary HPI Summary: 25 yo female presents with lower abd cramping ("it feels like a bladder infection"). Also c/o brown vaginal d/c on and off over the last couple months. No fever / chills. No diarrhea. No rash, no pruritus. No cough / sob / cp. C/o pain L lower wisdom tooth "it's cracked," has appt with dentist tomorrow, but c/o worse pain since last night. Takling ibuprofen but not helping. - History Of Current Complaint Chief Complaint: UCGU Stated Complaint: PERSONAL BACK PAIN DENTAL PAIN Time Seen by Provider: 10/08/16 09:48 Hx Obtained From: Patient Hx Last Menstrual Period: JULY 2016-DEPO SHOT ?: No - Allergies/Home Medications Allergies/Adverse Reactions: Allergies Allergy/AdvReac Type Severity Reaction Status Date / Time Latex Allergy Intermediate Hives Verified 09/16/16 09:53 Ciprofloxacin [From Cipro] Allergy Vomiting Verified 10/08/16 08:56 Home Medications: Home Medications medroxyPROGESTERone ACETATE* [DEPO-Provera*] 10/08/16 [History] PMH/Surg Hx/FS Hx/Imm Hx Previously Healthy: Yes - see hpi Endocrine History Of: Denies: Diabetes, Thyroid Disease, Hyperthyroidism, Hypothyroidism, Dyslipidemia Cardiovascular History Of: Denies: Cardiac Disorders, Hypertension, Pacemaker/ICD, Myocardial Infarction , Congestive Heart Failure, Atrial Fibrillation, Deep Vein Thrombosis, Bleeding Disorders Respiratory History Of: Reports: Asthma - albuterol MDI as needed Denies: COPD, Bronchitis, Pneumonia, Pulmonary Embolism GI/ History Of: Denies: Gastroesophageal Reflux, Ulcer, Gastrointestinal Bleed, Gall Bladder Disease, Kidney Stones, Diverticulitis, Renal Disease, Urosepsis Neurological History Of: Denies: TIA, CVA, Dementia, Seizures, Migraine Psychological History Of: Reports: Anxiety, Depression - started celexa this Denies: Bipolar Disorder, Schizophrenia, Post Traumatic Stress Disorder Cancer History Of: Denies: Lung Cancer, Colorectal Cancer, Breast Cancer, Prostate Cancer, Cervical Cancer Other History Of: Negative For: HIV, Hepatitis B, Hepatitis C, Anticoagulant Therapy - Surgical History Surgical History: Yes Surgery Procedure, Year, and Place: Gall Bladder. Tonsillectomy & Adenoidectomy. MOLE REMOVED FROM LOWER BACK - Family History Known Family History: Positive: Cardiac Disease, Hypertension - Social History Alcohol Use: Occasionally Substance Use Type: None Smoking Status (MU): Never Smoked Tobacco Have You Smoked in the Last Year: No - Immunization History Most Recent Influenza Vaccination: Not UTD Most Recent Tetanus Shot: 01/2012 Review of Systems Constitutional: Negative Skin: Negative Eyes: Negative ENT: Other - see hpi Respiratory: Negative Cardiovascular: Negative Gastrointestinal: Negative, Abdominal Pain Genitourinary: Other - see hpi Motor: Negative Neurovascular: Negative Musculoskeletal: Negative Neurological: Negative Psychological: Negative All Other Systems Reviewed And Are Negative: Yes Physical Exam Triage Information Reviewed: Yes Appearance: Well-Nourished - sitting up. conversing easily and appropriately. Vital Signs: Initial Vital Signs Temp 97.5 F 10/08/16 08:56 Pulse 101 10/08/16 08:56 Resp 16 10/08/16 08:56 BP 115/81 10/08/16 08:56 Pulse Ox 97 10/08/16 08:56 Vital Signs Reviewed: Yes Eye Exam: Normal ENT Exam: Other - Left lower wisdom tooth broken. small yellow-white slough overlying center of tooth. No taya gum swelling. Tongue not elevated. Neck supple, nontender. No adenopathy. Neck exam: Normal Neck: Positive: Supple, Nontender Respiratory Exam: Normal Respiratory: Positive: Lungs clear Cardiovascular Exam: Normal Abdominal Exam: Other - tender mid lower pelvis. Perineum - normal female genitalia. No external sores noted. Vag vault with dark red-brown discharge. Cervix - no cmt. No taya ovarian mass or point tenderness. Musculoskeletal Exam: Normal Neurological Exam: Normal Psychological Exam: Normal Skin Exam: Normal Complaint Female Dx - Course Course Of Treatment: Cx obtained for GC / affirm. Will treat presumptively for B vaginosis (suspicious thereof). Per pt request, Rx Diflucan, rajeev in light of abx. Reviewed urine dip and ucg (neg). Cx sent. Advised f/u pcp to ensure blood resolved. Rx: Rocephin IM here, Doxycycline po. Diflucan prn. Metrogel qhs x 7 days. F/u dentist tomorrow as scheduled re tooth issue (abx from today will help). Seek medical attention for worse or new problems. F/u PCP 1-2 weeks. Questions answered as posed. Rx naproxen 500 (in lieu of ibupofen) e- scribed. - Differential Dx/Diagnosis Provider Diagnoses: Vaginitis. UTI sx. Toothache Discharge - Discharge Plan Condition: Stable Disposition: HOME Prescriptions: DOXYcycline CAP(*) [DOXYcycline 100MG CAP(*)] 100 mg PO BID #20 cap Fluconazole [Diflucan 150 MG (NF)] 150 mg PO DAILY #2 tab Naproxen [Naproxen 500 MG TABS] 500 mg PO BID PRN #20 tab PRN Reason: Pain metroNIDAZOLE VAGINAL 0.75%* 1 applic VAGINAL BEDTIME #1 tube Patient Education Materials: Urinary Tract Infection in Women (ED), Vaginitis ( ED), Hematuria (ED), Toothache (ED) Referrals: Jabier Gamez MD [Primary Care Provider] - Additional Instructions: Follow up with your primary care provider, per routine. Recommend recheck in 1- 2 weeks, to ensure blood in urine has resolved. Follow up with your dentist as scheduled tomorrow. Seek medical attention sooner for worse or new problems in the meantime. The documentation as recorded by the Roslyn cueva Matthew accurately reflects the service I personally performed and the decisions made by me, Jami Garcia MD.
== END 2016-10-08 10:31 | disposition home or self-care (01) ==
LOC: UCEAST 08:46
DX: N76.0 Acute vaginitis (principal); Z32.02 Encounter for pregnancy test, result negative; K08.89 Other specified disorders of teeth and supporting structures; J45.909 Unspecified asthma, uncomplicated; F41.8 Other specified anxiety disorders; Z90.49 Acquired absence of other specified parts of digestive tract; Z88.1 Allergy status to other antibiotic agents; Z91.040 Latex allergy status
CPT/HCPCS: 81003; 84702; 87077; 87086; 87186; 87480; 87491; 87510; 87591; 96372; 99212; G0463; J0696

== ENCOUNTER 2017-02-17 09:31 | Emergency (ER) | payer OTHER ==
[2017-02-17 09:36] VITALS: BP 106/69
[2017-02-17] MEDS ORDERED: Ketorolac INJ* 60 MG/2 ML VIAL IM ONE (09:50)
[2017-02-17] MEDS ORDERED: Amoxicillin PO (*) 250 MG CAP PO ONE (09:51)
--- NOTE | 2017-02-18 07:21 | ED ---
Yas Lan Alfonso, scribed for Chris Llamas MD on 02/17/17 at 0956 . Complex/Multi-Sys Presentation - HPI Summary HPI Summary: This patient is a 26 year old F presenting to [facility] with a chief complaint of dental pain since 4 days ago. She reports a bubble next to the tooth. The patient rates the aching pain 10/10 in severity. Symptoms aggravated by touch and eating. Symptoms alleviated by nothing. She reports a dentist appointment for April 08. - History Of Current Complaint Chief Complaint: EDDentalPain Time Seen by Provider: 02/17/17 09:41 Hx Obtained From: Patient Onset/Duration: Sudden Onset, Lasting Days - 4, Still Present Timing: Constant Severity Currently: Severe Character: Dull - aching Aggravating Factor(s): touch and eating Alleviating Factor(s): nothing - Allergies/Home Medications Allergies/Adverse Reactions: Allergies Allergy/AdvReac Type Severity Reaction Status Date / Time Latex Allergy Intermediate Hives Verified 09/16/16 09:53 Ciprofloxacin [From Cipro] Allergy Vomiting Verified 10/08/16 08:56 PMH/Surg Hx/FS Hx/Imm Hx Endocrine/Hematology History: Denies: Hx Anticoagulant Therapy, Hx Diabetes, Hx Thyroid Disease Cardiovascular History: Denies: Hx Congestive Heart Failure, Hx Deep Vein Thrombosis, Hx Hypertension , Hx Myocardial Infarction, Hx Pacemaker/ICD Respiratory History: Reports: Hx Asthma - albuterol MDI as needed Denies: Hx Chronic Obstructive Pulmonary Disease (COPD), Hx Lung Cancer, Hx Pneumonia, Hx Pulmonary Embolism GI History: Denies: Hx Gall Bladder Disease, Hx Gastrointestinal Bleed, Hx Ulcer, Hx Urosepsis, Other GI Disorders History: Reports: Other Problems/Disorders - OVARIAN CYST Denies: Hx Kidney Stones, Hx Renal Disease Sensory History: Denies: Hx Hearing Aid Neurological History: Denies: Hx Dementia, Hx Migraine, Hx Seizures, Hx Transient Ischemic Attacks (TIA) Psychiatric History: Reports: Hx Anxiety, Hx Depression - started celexa this , Other Psychiatric Issues/Disorders - anxiety on celexa but pt inconsistant with taking Denies: Hx Panic Disorder, Hx Schizophrenia, Hx Bipolar Disorder, Hx Substance Abuse - Surgical History Surgery Procedure, Year, and Place: Gall Bladder. Tonsillectomy & Adenoidectomy. MOLE REMOVED FROM LOWER BACK - Immunization History Date of Tetanus Vaccine: Unknown Date of Influenza Vaccine: None Infectious Disease History: No Infectious Disease History: Denies: Hx Clostridium Difficile, Hx Hepatitis, Hx Human Immunodeficiency Virus (HIV), Hx of Known/Suspected MRSA, Hx Shingles, Hx Tuberculosis, Hx Known/ Suspected VRE, Hx Known/Suspected VRSA, History Other Infectious Disease, Traveled Outside the [place] in Last 30 Days - Family History Known Family History: Positive: Cardiac Disease, Hypertension - Social History Alcohol Use: Occasionally Substance Use Type: Reports: None Smoking Status (MU): Never Smoked Tobacco Have You Smoked in the Last Year: No Review of Systems Negative: Fever Positive: Dental Pain All Other Systems Reviewed And Are Negative: Yes Physical Exam - Summary Physical Exam Summary: VITAL SIGNS: Reviewed. GENERAL: Patient is a well-developed and nourished female who is lying comfortable in the stretcher. Patient is not in any acute respiratory distress. HEAD AND FACE: No signs of trauma. No ecchymosis, hematomas or skull depressions. No sinus tenderness. EYES: PERRLA, EOMI x 2, No injected conjunctiva, no nystagmus. EARS: Hearing grossly intact. Ear canals and tympanic membranes are within normal limits. MOUTH: Oropharynx within normal limits. Erythema right side of gums. Multiple cavities. Fractured tooth 31. No trismus. No tongue or lip swelling. NECK: Supple, trachea is midline, no adenopathy, no JVD, no carotid bruit, no c- spine tenderness, neck with full ROM. CHEST: Symmetric, no tenderness at palpation LUNGS: Clear to auscultation bilaterally. No wheezing or crackles. CVS: Regular rate and rhythm, S1 and S2 present, no murmurs or gallops appreciated. ABDOMEN: Soft, non-tender. No signs of distention. No rebound no guarding, and no masses palpated. Bowel sounds are normal. EXTREMITIES: FROM in all major joints, no edema, no cyanosis or clubbing. NEURO: Alert and oriented x 3. No acute neurological deficits. Speech is normal and follows commands. SKIN: Dry and warm Triage Information Reviewed: Yes Vital Signs On Initial Exam: Initial Vitals Temp Pulse Resp BP Pulse Ox 97.7 F 90 16 106/69 99 02/17/17 09:32 02/17/17 09:32 02/17/17 09:32 02/17/17 09:32 02/17/17 09:32 Vital Signs Reviewed: Yes Diagnostics - Vital Signs Vital Signs Temp Pulse Resp BP Pulse Ox 02/17/17 09:32 97.7 F 90 16 106/69 99 - Laboratory Lab Statement: Any lab studies that have been ordered have been reviewed, and results considered in the medical decision making process. Complex Multi-Symp Course/Dx Assessment/Plan: This patient is a 26 year old F presenting to [facility] with a chief complaint of dental pain since 4 days ago. She reports a bubble next to the tooth. The patient rates the aching pain 10/10 in severity. Symptoms aggravated by touch and eating. Symptoms alleviated by nothing. She reports a dentist appointment for April 08. The patient does not have pharyngitis, swelling of the tongue and lip, and there is no abscess formation. Therefore, she was given amoxicillin and toradol in the ED. She reports a new and scheduled appointment to see the dentist on Friday. Therefore, the patient will be discharged to home with PCP and dentist follow up. The patient is agreeable with this plan. The patient is hemodynamically stable, alert and oriented x3. - Diagnoses Provider Diagnoses: Pain, dental, Dental cavities Discharge - Discharge Plan Condition: Stable Disposition: HOME Prescriptions: Amoxicillin PO (*) [Amoxicillin 875 MG (*)] 875 mg PO BID #10 tab Naproxen TAB* [Naprosyn 250 mg TAB*] 500 mg PO Q8H PRN #20 tab PRN Reason: Pain oxyCODONE/Acetamin 5/325 MG* [Percocet 5/325 TAB*] 1 tab PO Q4H PRN #5 tab MDD 4 PRN Reason: Pain Patient Education Materials: Toothache (ED) Referrals: Jabier Gamez MD [Primary Care Provider] - 3 Days Additional Instructions: RETURN TO THE EMERGENCY DEPARTMENT FOR CHANGING OR WORSENING SYMPTOMS. The documentation as recorded by the Yas cueva Alfonso accurately reflects the service I personally performed and the decisions made by Frahad patton Walter, MD.
== END 2017-02-17 10:43 | disposition home or self-care (01) ==
LOC: ED 09:31
DX: K08.89 Other specified disorders of teeth and supporting structures (principal); K02.9 Dental caries, unspecified
CPT/HCPCS: 96372; 99282; A9270-GY; J1885

== ENCOUNTER → 2017-03-04 08:24 | Emergency (ER) | payer OTHER ==
[~2017-03-04 08:24] MED LIST: Ketorolac INJ* 60 MG/2 ML VIAL IM ONE
--- NOTE | 2017-03-04 09:46 | ED ---
Throat Pain/Nasal Congestion - HPI Summary HPI Summary: Rt upper dental pain since January - has a crack/hole on affected tooth Was seen here couple of weeks ago - received amox, no change, still has swelling. Pain is radiating into eye and ear. Next scheduled appt April 08 w/ dentist - on cancellation list. No drainage observed. - denies fever, chills, N/ V/D, neck pain. Takes ibuprofen. - History of Current Complaint Chief Complaint: EDDentalPain Time Seen by Provider: 03/04/17 09:36 Hx Obtained From: Patient - Allergies/Home Medications Allergies/Adverse Reactions: Allergies Allergy/AdvReac Type Severity Reaction Status Date / Time Latex Allergy Intermediate Hives Verified 09/16/16 09:53 Ciprofloxacin [From Cipro] Allergy Vomiting Verified 10/08/16 08:56 PMH/Surg Hx/FS Hx/Imm Hx Previously Healthy: Yes Endocrine/Hematology History: Denies: Hx Anticoagulant Therapy, Hx Diabetes, Hx Thyroid Disease Cardiovascular History: Denies: Hx Congestive Heart Failure, Hx Deep Vein Thrombosis, Hx Hypertension , Hx Myocardial Infarction, Hx Pacemaker/ICD Respiratory History: Reports: Hx Asthma - albuterol MDI as needed Denies: Hx Chronic Obstructive Pulmonary Disease (COPD), Hx Lung Cancer, Hx Pneumonia, Hx Pulmonary Embolism GI History: Denies: Hx Gall Bladder Disease, Hx Gastrointestinal Bleed, Hx Ulcer, Hx Urosepsis, Other GI Disorders History: Reports: Other Problems/Disorders - OVARIAN CYST Denies: Hx Kidney Stones, Hx Renal Disease Sensory History: Denies: Hx Hearing Aid Neurological History: Denies: Hx Dementia, Hx Migraine, Hx Seizures, Hx Transient Ischemic Attacks (TIA) Psychiatric History: Reports: Hx Anxiety, Hx Depression - started celexa this , Other Psychiatric Issues/Disorders - anxiety on celexa but pt inconsistant with taking Denies: Hx Panic Disorder, Hx Schizophrenia, Hx Bipolar Disorder, Hx Substance Abuse - Surgical History Surgery Procedure, Year, and Place: Gall Bladder. Tonsillectomy & Adenoidectomy. MOLE REMOVED FROM LOWER BACK - Immunization History Date of Tetanus Vaccine: Unknown Date of Influenza Vaccine: None Infectious Disease History: No Infectious Disease History: Denies: Hx Clostridium Difficile, Hx Hepatitis, Hx Human Immunodeficiency Virus (HIV), Hx of Known/Suspected MRSA, Hx Shingles, Hx Tuberculosis, Hx Known/ Suspected VRE, Hx Known/Suspected VRSA, History Other Infectious Disease, Traveled Outside the [place] in Last 30 Days - Family History Known Family History: Positive: Cardiac Disease, Hypertension - Social History Occupation: Employed Full-time - [employer] Lives: With Family Alcohol Use: Occasionally Hx Substance Use: No Substance Use Type: Reports: None Hx Tobacco Use: No Smoking Status (MU): Never Smoked Tobacco Have You Smoked in the Last Year: No Review of Systems Constitutional: Negative Eyes: Negative ENT: Other - see HPI Cardiovascular: Negative Negative: Chest Pain Respiratory: Negative Negative: Shortness Of Breath Gastrointestinal: Negative Positive: no symptoms reported Musculoskeletal: Negative Skin: Negative Neurological: Negative Psychological: Normal All Other Systems Reviewed And Are Negative: Yes Physical Exam Vital Signs On Initial Exam: Initial Vitals Temp Pulse Resp BP Pulse Ox 98.0 F 93 20 127/67 98 03/04/17 08:32 03/04/17 08:32 03/04/17 08:32 03/04/17 08:32 03/04/17 08:32 - [place] Coma Scale Coma Scale Total: 15 Diagnostics - Vital Signs Vital Signs Temp Pulse Resp BP Pulse Ox 03/04/17 08:32 98.0 F 93 20 127/67 98 - Laboratory Lab Statement: Any lab studies that have been ordered have been reviewed, and results considered in the medical decision making process.
[2017-03-04 10:30] VITALS: BP 122/68
== END | disposition home or self-care (01) ==
LOC: ED 08:24
DX: K08.89 Other specified disorders of teeth and supporting structures (principal); M54.2 Cervicalgia
CPT/HCPCS: 96372; 99282; J1885

== ENCOUNTER 2017-05-07 16:44 | Emergency (ER) | payer OTHER ==
[2017-05-07 17:26] LABS: Urine Bacteria Absent (Absent); Urine Bilirubin Negative (Negative); Urine Glucose Negative (Negative); Urine Nitrite Positive (Negative)
--- NOTE | 2017-05-07 18:05 | ED ---
Abdominal Pain/Female - History of Current Complaint Chief Complaint: EDAbdPain Stated Complaint: POSS UTI Time Seen by Provider: 05/07/17 17:04 Hx Last Menstrual Period: depo august 2016 Pain Intensity: 8 Allergies/Adverse Reactions: Allergies Allergy/AdvReac Type Severity Reaction Status Date / Time Latex Allergy Intermediate Hives Verified 09/16/16 09:53 Ciprofloxacin [From Cipro] Allergy Vomiting Verified 10/08/16 08:56 PMH/Surg Hx/FS Hx/Imm Hx Endocrine/Hematology History: Denies: Hx Anticoagulant Therapy, Hx Diabetes, Hx Thyroid Disease Cardiovascular History: Denies: Hx Congestive Heart Failure, Hx Deep Vein Thrombosis, Hx Hypertension , Hx Myocardial Infarction, Hx Pacemaker/ICD Respiratory History: Reports: Hx Asthma - albuterol MDI as needed Denies: Hx Chronic Obstructive Pulmonary Disease (COPD), Hx Lung Cancer, Hx Pneumonia, Hx Pulmonary Embolism GI History: Denies: Hx Gall Bladder Disease, Hx Gastrointestinal Bleed, Hx Ulcer, Hx Urosepsis, Other GI Disorders History: Reports: Other Problems/Disorders - OVARIAN CYST Denies: Hx Kidney Stones, Hx Renal Disease Sensory History: Denies: Hx Hearing Aid Neurological History: Denies: Hx Dementia, Hx Migraine, Hx Seizures, Hx Transient Ischemic Attacks (TIA) Psychiatric History: Reports: Hx Anxiety, Hx Depression - started celexa this , Other Psychiatric Issues/Disorders - anxiety on celexa but pt inconsistant with taking Denies: Hx Panic Disorder, Hx Schizophrenia, Hx Bipolar Disorder, Hx Substance Abuse - Surgical History Surgery Procedure, Year, and Place: Gall Bladder. Tonsillectomy & Adenoidectomy. MOLE REMOVED FROM LOWER BACK - Immunization History Date of Tetanus Vaccine: Unknown Date of Influenza Vaccine: None Immunizations Up to Date: Yes Infectious Disease History: Yes Infectious Disease History: Denies: Hx Clostridium Difficile, Hx Hepatitis, Hx Human Immunodeficiency Virus (HIV), Hx of Known/Suspected MRSA, Hx Shingles, Hx Tuberculosis, Hx Known/ Suspected VRE, Hx Known/Suspected VRSA, History Other Infectious Disease, Traveled Outside the [place] in Last 30 Days - Family History Known Family History: Positive: Cardiac Disease, Hypertension - Social History Alcohol Use: Occasionally Alcohol Amount: monthly Hx Substance Use: No Substance Use Type: Reports: None Hx Tobacco Use: No Smoking Status (MU): Never Smoked Tobacco Have You Smoked in the Last Year: No Physical Exam Vital Signs On Initial Exam: Initial Vitals Temp Pulse Resp BP Pulse Ox 97.2 F 91 17 137/78 97 05/07/17 16:54 05/07/17 16:54 05/07/17 16:54 05/07/17 16:54 05/07/17 16:54 Diagnostics - Vital Signs Vital Signs Temp Pulse Resp BP Pulse Ox 05/07/17 16:54 97.2 F 91 17 137/78 97 - Laboratory Lab Results: Lab Results 05/07/17 Range/Units 17:00 Urine Color [place] Urine Appearance Clear Urine pH 5.0 (5-9) Ur Specific [place] 1.020 (1.010-1.030) Urine Protein 1+(30 mg/dl) H (Negative) Urine Ketones Negative (Negative) Urine Blood 3+ H (Negative) Urine Nitrate Positive H (Negative) Urine Bilirubin Negative (Negative) Urine Urobilinogen Positive H (Negative) Ur Leukocyte Esterase Negative (Negative) Urine WBC (Auto) 3+(>20/hpf) H (Absent) Urine RBC (Auto) 3+(>10/hpf) H (Absent) Ur Squamous Epith Cells Present H (Absent) Urine Bacteria Absent (Absent) Urine Glucose Negative (Negative) Lab Statement: Any lab studies that have been ordered have been reviewed, and results considered in the medical decision making process. Discharge - Discharge Plan Referrals: Jabier Gamez MD [Primary Care Provider] -
[2017-05-07] MEDS ORDERED: Sulfamethox/Trimethoprim DS 800/160* TAB PO ONE (18:17)
[2017-05-07] MEDS ORDERED: Ibuprofen TAB* 600 MG PO ONE (18:17)
[2017-05-07] MEDS ORDERED: Phenazopyridine TAB* 100 MG PO ONE (18:17)
--- NOTE | 2017-05-07 18:24 | ED ---
GI/ HPI - HPI Summary HPI Summary: 26 female presents to ED with complaints of suprapubic pressure, dysuria, urgency and frequency, with little production of urine for the past 2-3 days, that have been worsening. Patient states she thinks it is a UTI and gets them often. Denies vaginal discharge and bleeding. No concern for STD. States she is on the depo. Denies any other abdominal pain or discomfort. Normal bowel movements. No fever/chills, vomiting or back pain. Tried taking Azo over the counter without much relief. No other complaints. No PMHx. No other medications. Denies genitalia symptoms. - History of Current Complaint Chief Complaint: EDAbdPain Time Seen by Provider: 05/07/17 17:04 Stated Complaint: POSS UTI Hx Obtained From: Patient Hx Last Menstrual Period: depo august 2016 Onset/Duration: Started Days Ago, Still Present, Worse Since Timing: Constant, Lasting Days Severity: Mild Current Severity: Moderate Pain Intensity: 8 Location of Pain: Suprapubic Pain Characteristics: Pressure - over suprapubic/bladder area Associated Signs and Symptoms: Positive: Hematuria, Dysuria, UTI Symptoms Aggravating Factor(s): Urination, Walking/Exertion Alleviating Factor(s): Nothing - Allergy/Home Medications Allergies/Adverse Reactions: Allergies Allergy/AdvReac Type Severity Reaction Status Date / Time Latex Allergy Intermediate Hives Verified 09/16/16 09:53 Ciprofloxacin [From Cipro] Allergy Vomiting Verified 10/08/16 08:56 PMH/Surg Hx/FS Hx/Imm Hx Endocrine/Hematology History: Denies: Hx Anticoagulant Therapy, Hx Diabetes, Hx Thyroid Disease Cardiovascular History: Denies: Hx Congestive Heart Failure, Hx Deep Vein Thrombosis, Hx Hypertension , Hx Myocardial Infarction, Hx Pacemaker/ICD Respiratory History: Reports: Hx Asthma - albuterol MDI as needed Denies: Hx Chronic Obstructive Pulmonary Disease (COPD), Hx Lung Cancer, Hx Pneumonia, Hx Pulmonary Embolism GI History: Denies: Hx Gall Bladder Disease, Hx Gastrointestinal Bleed, Hx Ulcer, Hx Urosepsis, Other GI Disorders History: Reports: Other Problems/Disorders - OVARIAN CYST Denies: Hx Kidney Stones, Hx Renal Disease Sensory History: Denies: Hx Hearing Aid Neurological History: Denies: Hx Dementia, Hx Migraine, Hx Seizures, Hx Transient Ischemic Attacks (TIA) Psychiatric History: Reports: Hx Anxiety, Hx Depression - started celexa this , Other Psychiatric Issues/Disorders - anxiety on celexa but pt inconsistant with taking Denies: Hx Panic Disorder, Hx Schizophrenia, Hx Bipolar Disorder, Hx Substance Abuse - Surgical History Surgery Procedure, Year, and Place: Gall Bladder. Tonsillectomy & Adenoidectomy. MOLE REMOVED FROM LOWER BACK - Immunization History Date of Tetanus Vaccine: Unknown Date of Influenza Vaccine: None Immunizations Up to Date: Yes Infectious Disease History: Yes Infectious Disease History: Denies: Hx Clostridium Difficile, Hx Hepatitis, Hx Human Immunodeficiency Virus (HIV), Hx of Known/Suspected MRSA, Hx Shingles, Hx Tuberculosis, Hx Known/ Suspected VRE, Hx Known/Suspected VRSA, History Other Infectious Disease, Traveled Outside the [place] in Last 30 Days - Family History Known Family History: Positive: Cardiac Disease, Hypertension - Social History Alcohol Use: Occasionally Alcohol Amount: monthly Hx Substance Use: No Substance Use Type: Reports: None Hx Tobacco Use: No Smoking Status (MU): Never Smoked Tobacco Have You Smoked in the Last Year: No Review of Systems Constitutional: Negative Cardiovascular: Negative Respiratory: Negative Positive: Abdominal Pain - suprapubic Positive: see HPI, burning, dysuria, frequency, hematuria, pain, urgency Neurological: Negative All Other Systems Reviewed And Are Negative: Yes Physical Exam Triage Information Reviewed: Yes Vital Signs On Initial Exam: Initial Vitals Temp Pulse Resp BP Pulse Ox 97.2 F 91 17 137/78 97 05/07/17 16:54 05/07/17 16:54 05/07/17 16:54 05/07/17 16:54 05/07/17 16:54 Vital Signs Reviewed: Yes Appearance: Positive: Well-Appearing, Well-Nourished, Pain Distress - mild discomfort, worse with palpation of bladder Skin: Positive: Warm, Skin Color Reflects Adequate Perfusion, Dry. Negative: Cold, Cyanosis @, Jaundiced, Pale, Erythema @ Head/Face: Positive: Normal Head/Face Inspection Eyes: Positive: Conjunctiva Clear ENT: Positive: Hearing grossly normal Respiratory/Lung Sounds: Positive: Clear to Auscultation, Breath Sounds Present. Negative: Rales, Rhonchi, Wheezes Cardiovascular: Positive: Normal, RRR, Pulses are Symmetrical in both Upper and Lower Extremities. Negative: Murmur, Rub Abdomen Description: Positive: No Organomegaly, Soft, Other: - mildly tender/ uncomfortable on palpation of suprapubic area over bladder without radiation or abnormal findings. Negative: Bruit, CVA Tenderness (R), CVA Tenderness (L), Distended, Guarding, McBurney's Point Tenderness, Peritoneal Signs Bowel Sounds: Positive: Present Pelvic Exam: Positive: other - recommended doing pelvic exam for completeness, however patient refused and stated "i'll go to my OBGYN if symptoms develop/ worsen" Musculoskeletal: Positive: Normal, Strength/ROM Intact Neurological: Positive: Normal, Sensory/Motor Intact, Alert, Oriented to Person Place, Time Diagnostics - Vital Signs Vital Signs Temp Pulse Resp BP Pulse Ox 05/07/17 16:54 97.2 F 91 17 137/78 97 - Laboratory Lab Results: Lab Results 05/07/17 Range/Units 17:00 Urine Color [place] Urine Appearance Clear Urine pH 5.0 (5-9) Ur Specific [place] 1.020 (1.010-1.030) Urine Protein 1+(30 mg/dl) H (Negative) Urine Ketones Negative (Negative) Urine Blood 3+ H (Negative) Urine Nitrate Positive H (Negative) Urine Bilirubin Negative (Negative) Urine Urobilinogen Positive H (Negative) Ur Leukocyte Esterase Negative (Negative) Urine WBC (Auto) 3+(>20/hpf) H (Absent) Urine RBC (Auto) 3+(>10/hpf) H (Absent) Ur Squamous Epith Cells Present H (Absent) Urine Bacteria Absent (Absent) Urine Glucose Negative (Negative) Lab Statement: Any lab studies that have been ordered have been reviewed, and results considered in the medical decision making process. GIGU Course/Dx - Course Course Of Treatment: urinlaysis obtained and positive for cystitis/UTI. patient on depo without concern for . appears to be suffering from cystitis/ UTI. Recommended preforming pelvic exam with cultures however patient refused after educating on other possible etiologies causing symptoms. she stated she would have her exam done by PCP/OBGYN if symptoms worsen or new symptoms develop. increase fluid intake. given ibuprofen, pyridium and first dose bactrim. continue at home. aware of worsening signs and symptoms. patient agrees and understands plan. no concern for other etiology at this time. given diflucan in case of radu due to previous history of taking antibiotics and getting vaginal candidiasis. follow up pcp. - Diagnoses Differential Diagnoses - Female: Candidiasis, Cystitis, Pelvic Inflammatory Disease, STD, Urinary Tract Infection, Ureteral Calculi, Vaginitis Provider Diagnoses: Cystitis, UTI (urinary tract infection) Discharge - Discharge Plan Condition: Stable Disposition: HOME Prescriptions: Fluconazole 150 MG (NF) [Diflucan 150 mg (NF)] 150 mg PO ONCE #1 tab Phenazopyridine 200 mg (NF) [Pyridium 200 MG tab *] 200 mg PO TID #5 tab Sulfamethox/Trimethoprim DS* [Bactrim DS 800/160 TAB*] 1 tab PO BID #9 tab Patient Education Materials: Urinary Tract Infection in Women (ED) Referrals: Jabier Gamez MD [Primary Care Provider] - Additional Instructions: Take prescribed medication as directed until entire dose is finished. If you develop symptoms of yeast infection due to antibiotic use, take diflucan at onset of symptoms, do not take if no symptoms. Ibuprofen for discomfort. Increase fluid intake. You will hear about culture results if you medication needs to be changed in a few days, you will not hear if you are on appropriate medication. Any new or worsening symptoms as we discussed, such as vomiting, fever, back pain, increased pain, please seek medical attention promptly. Follow up with PCP/OBGYN.
[2017-05-07 18:53] VITALS: BP 110/70
== END 2017-05-07 18:54 | disposition home or self-care (01) ==
LOC: ED 16:44
DX: N39.0 Urinary tract infection, site not specified (principal); N30.90 Cystitis, unspecified without hematuria; R31.9 Hematuria, unspecified; R30.0 Dysuria; R10.9 Unspecified abdominal pain
CPT/HCPCS: 81003; 81015; 87077; 87086; 99282; A9270-GY

== ENCOUNTER 2017-06-21 17:37 | Emergency (ER) | payer OTHER ==
[2017-06-21] MEDS ORDERED: NS 0.9% 1000 ML* 1,000 ML IV ONE (18:51)
[2017-06-21] MEDS ORDERED: Ondansetron INJ* 2 MG/ML VIAL IV ONE ×2 (18:51→20:39)
[2017-06-21] MEDS ORDERED: Morphine INJ* 4 MG/ML 1 ML CARPUJECT IV ONE (18:51)
[2017-06-21 19:50] LABS: ABS Basophils 0.1 10^3/ul (0-0.2); ABS Eosinophils 0 10^3/ul (0-0.6); ABS Lymphocytes 1.5 10^3/ul (1.0-4.8); ABS Monocytes 0.7 10^3/ul (0-0.8); ABS Neutrophils 8.8 10^3/ul (1.5-7.7); ABS Nucleated RBC 0 10^3/ul; Eosinophil % 0 % (0-6); Hematocrit 42 % (35-47); Hemoglobin 14.4 g/dl (12.0-16.0); Lymphocyte % 13.7 % (25-47); Mean Corpuscular HGB Conc 35 g/dl (31-36); Mean Corpuscular Hemoglobin 31 pg (27-31); Mean Corpuscular Volume 89 fL (80-97); Mean Platelet Volume 9 um3 (7.4-10.4); Nucleated Red Blood Cells % 0; Platelet Count 263 10^3/ul (150-450); Red Blood Count 4.69 10^6/ul (4.0-5.4); Red Cell Distribution Width 13 % (10.5-15); White Blood Count 11.1 10^3/ul (3.5-10.8)
[2017-06-21 19:57] LABS: Urine Appearance Cloudy; Urine Blood 1+ (Negative); Urine Color Yellow; Urine Ketones Trace (Negative); Urine Protein 1+(30 mg/dL) (Negative); Urine Specific Gravity 1.027 (1.010-1.030); Urine Urobilinogen Negative (Negative)
[2017-06-21 20:07] LABS: EGFR Non-African American 109.3 (>60)
[2017-06-21 20:26] LABS: INR 1.02 (0.77-1.02)
[2017-06-21] MEDS ORDERED: Ondansetron INJ* 2 MG/ML VIAL ONE (20:37)
[2017-06-21] MEDS ORDERED: Iohexol 300* (CONTRAST) 10 ML SDV IV ONE (22:02)
[2017-06-21 23:08] VITALS: BP 102/70
--- NOTE | 2017-06-21 23:15 | ED ---
Ellis Lan Stephanie, scribed for Conrad Anaya on 06/21/17 at 1903 . Abdominal Pain/Female - HPI Summary HPI Summary: The pt is a 26 y/o F presenting to the ED with c/o abd pain that began 4 days ago. Symptoms include fever, vomiting, decreased per os intake, sore throat, nausea and rhinorrhea. - History of Current Complaint Chief Complaint: EDGeneral Stated Complaint: VOMITING/FEVER/SORE THROAT Time Seen by Provider: 06/21/17 18:42 Hx Obtained From: Patient Hx Last Menstrual Period: depo august 2016 ?: No Onset/Duration: Lasting Days - 4, Still Present Timing: Constant Severity Currently: Moderate Pain Intensity: 8 Pain Scale Used: 0-10 Numeric Radiates: No Aggravating Factor(s): Nothing Alleviating Factor(s): Nothing Associated Signs and Symptoms: Positive: Fever, Decreased Appetite, Nausea, Vomiting, Other: - rhinorrhea, Allergies/Adverse Reactions: Allergies Allergy/AdvReac Type Severity Reaction Status Date / Time Latex Allergy Intermediate Hives Verified 09/16/16 09:53 Ciprofloxacin [From Cipro] Allergy Vomiting Verified 10/08/16 08:56 PMH/Surg Hx/FS Hx/Imm Hx Endocrine/Hematology History: Denies: Hx Anticoagulant Therapy, Hx Diabetes, Hx Thyroid Disease Cardiovascular History: Denies: Hx Congestive Heart Failure, Hx Deep Vein Thrombosis, Hx Hypertension , Hx Myocardial Infarction, Hx Pacemaker/ICD Respiratory History: Reports: Hx Asthma - albuterol MDI as needed Denies: Hx Chronic Obstructive Pulmonary Disease (COPD), Hx Lung Cancer, Hx Pneumonia, Hx Pulmonary Embolism GI History: Denies: Hx Gall Bladder Disease, Hx Gastrointestinal Bleed, Hx Ulcer, Hx Urosepsis, Other GI Disorders History: Reports: Other Problems/Disorders - OVARIAN CYST Denies: Hx Kidney Stones, Hx Renal Disease Sensory History: Denies: Hx Hearing Aid Neurological History: Denies: Hx Dementia, Hx Migraine, Hx Seizures, Hx Transient Ischemic Attacks (TIA) Psychiatric History: Reports: Hx Anxiety, Hx Depression - started celexa this , Other Psychiatric Issues/Disorders - anxiety on celexa but pt inconsistant with taking Denies: Hx Panic Disorder, Hx Schizophrenia, Hx Bipolar Disorder, Hx Substance Abuse - Surgical History Surgery Procedure, Year, and Place: Gall Bladder. Tonsillectomy & Adenoidectomy. MOLE REMOVED FROM LOWER BACK - Immunization History Date of Tetanus Vaccine: Unknown Date of Influenza Vaccine: None Infectious Disease History: No Infectious Disease History: Denies: Hx Clostridium Difficile, Hx Hepatitis, Hx Human Immunodeficiency Virus (HIV), Hx of Known/Suspected MRSA, Hx Shingles, Hx Tuberculosis, Hx Known/ Suspected VRE, Hx Known/Suspected VRSA, History Other Infectious Disease, Traveled Outside the [place] in Last 30 Days - Family History Known Family History: Positive: Cardiac Disease, Hypertension - Social History Occupation: Employed Part-time Lives: With Family Alcohol Use: Occasionally Alcohol Amount: monthly Hx Substance Use: No Substance Use Type: Reports: None Hx Tobacco Use: No Smoking Status (MU): Never Smoked Tobacco Have You Smoked in the Last Year: No Review of Systems Positive: Fever, Other - decreased oral intake Positive: Other - rhinorrhea Positive: Abdominal Pain, Vomiting, Nausea All Other Systems Reviewed And Are Negative: Yes Physical Exam - Summary Physical Exam Summary: Appearance: Well appearing, no pain distress Skin: warm, dry, reflects adequate perfusion Head/face: normal Eyes: EOMI, YUKI ENT: normal Neck: supple, non-tender Respiratory: CTA, breath sounds present Cardiovascular: RRR, pulses symmetrical Abdomen: RLQ tenderness Bowel: present Musculoskeletal: normal, strength/ROM intact Neuro: normal, sensory motor intact, A&Ox3 Triage Information Reviewed: Yes Vital Signs On Initial Exam: Initial Vitals Temp Pulse Resp BP Pulse Ox 98.3 F 104 18 139/83 100 06/21/17 17:56 06/21/17 17:56 06/21/17 17:56 06/21/17 17:56 06/21/17 17:56 Vital Signs Reviewed: Yes Diagnostics - Vital Signs Vital Signs Temp Pulse Resp BP Pulse Ox 06/21/17 18:10 112 98 06/21/17 18:08 93/73 06/21/17 17:56 98.3 F 104 18 139/83 100 - Laboratory Lab Results: Lab Results 06/21/17 06/21/17 06/21/17 Range/Units 19:30 19:30 19:30 WBC 11.1 H (3.5-10.8) 10^3/ul RBC 4.69 (4.0-5.4) 10^6/ul Hgb 14.4 (12.0-16.0) g/dl Hct 42 (35-47) % MCV 89 (80-97) fL MCH 31 (27-31) pg MCHC 35 (31-36) g/dl RDW 13 (10.5-15) % Plt Count 263 (150-450) 10^3/ul MPV 9 (7.4-10.4) um3 Neut % (Auto) 79.7 (38-83) % Lymph % (Auto) 13.7 L (25-47) % [place] % (Auto) 5.9 (1-9) % Eos % (Auto) 0 (0-6) % Baso % (Auto) 0.7 (0-2) % Absolute Neuts (auto) 8.8 H (1.5-7.7) 10^3/ul Absolute Lymphs (auto) 1.5 (1.0-4.8) 10^3/ul Absolute Monos (auto) 0.7 (0-0.8) 10^3/ul Absolute Eos (auto) 0 (0-0.6) 10^3/ul Absolute Basos (auto) 0.1 (0-0.2) 10^3/ul Absolute Nucleated RBC 0 10^3/ul Nucleated RBC % 0 INR (Anticoag Therapy) 1.02 (0.77-1.02) APTT 21.9 L (26.0-36.3) seconds Sodium 138 (133-145) mmol/L Potassium 3.7 (3.5-5.0) mmol/L Chloride 105 (101-111) mmol/L Carbon Dioxide 25 (22-32) mmol/L Anion Gap 8 (2-11) mmol/L BUN 11 (6-24) mg/dL Creatinine 0.65 (0.51-0.95) mg/dL Est GFR ( Amer) 140.6 (>60) Est GFR (Non-Af Amer) 109.3 (>60) BUN/Creatinine Ratio 16.9 (8-20) Glucose 92 (70-100) mg/dL Lactic Acid (0.5-2.0) mmol/L Calcium 9.4 (8.6-10.3) mg/dL Total Bilirubin 0.60 (0.2-1.0) mg/dL AST 22 (13-39) U/L ALT 26 (7-52) U/L Alkaline Phosphatase 77 (34-104) U/L Total Protein 7.3 (6.4-8.9) g/dL Albumin 4.3 (3.2-5.2) g/dL Globulin 3.0 (2-4) g/dL Albumin/Globulin Ratio 1.4 (1-3) Lipase < 10 L (11.0-82.0) U/L Beta HCG, Quant < 0.60 mIU/mL Urine Color Urine Appearance Urine pH (5-9) Ur Specific [place] (1.010-1.030) Urine Protein (Negative) Urine Ketones (Negative) Urine Blood (Negative) Urine Nitrate (Negative) Urine Bilirubin (Negative) Urine Urobilinogen (Negative) Ur Leukocyte Esterase (Negative) Urine WBC (Auto) (Absent) Urine RBC (Auto) (Absent) Ur Squamous Epith Cells (Absent) Urine Bacteria (Absent) Urine Glucose (Negative) Influenza A (Rapid) (Negative) Influenza B (Rapid) (Negative) 06/21/17 06/21/17 06/21/17 Range/Units 19:30 19:30 20:57 WBC (3.5-10.8) 10^3/ul RBC (4.0-5.4) 10^6/ul Hgb (12.0-16.0) g/dl Hct (35-47) % MCV (80-97) fL MCH (27-31) pg MCHC (31-36) g/dl RDW (10.5-15) % Plt Count (150-450) 10^3/ul MPV (7.4-10.4) um3 Neut % (Auto) (38-83) % Lymph % (Auto) (25-47) % [place] % (Auto) (1-9) % Eos % (Auto) (0-6) % Baso % (Auto) (0-2) % Absolute Neuts (auto) (1.5-7.7) 10^3/ul Absolute Lymphs (auto) (1.0-4.8) 10^3/ul Absolute Monos (auto) (0-0.8) 10^3/ul Absolute Eos (auto) (0-0.6) 10^3/ul Absolute Basos (auto) (0-0.2) 10^3/ul Absolute Nucleated RBC 10^3/ul Nucleated RBC % INR (Anticoag Therapy) (0.77-1.02) APTT (26.0-36.3) seconds Sodium (133-145) mmol/L Potassium (3.5-5.0) mmol/L Chloride (101-111) mmol/L Carbon Dioxide (22-32) mmol/L Anion Gap (2-11) mmol/L BUN (6-24) mg/dL Creatinine (0.51-0.95) mg/dL Est GFR ( Amer) (>60) Est GFR (Non-Af Amer) (>60) BUN/Creatinine Ratio (8-20) Glucose (70-100) mg/dL Lactic Acid 1.1 (0.5-2.0) mmol/L Calcium (8.6-10.3) mg/dL Total Bilirubin (0.2-1.0) mg/dL AST (13-39) U/L ALT (7-52) U/L Alkaline Phosphatase (34-104) U/L Total Protein (6.4-8.9) g/dL Albumin (3.2-5.2) g/dL Globulin (2-4) g/dL Albumin/Globulin Ratio (1-3) Lipase (11.0-82.0) U/L Beta HCG, Quant mIU/mL Urine Color Yellow Urine Appearance Cloudy Urine pH 6.0 (5-9) Ur Specific [place] 1.027 (1.010-1.030) Urine Protein 1+(30 mg/dl) H (Negative) Urine Ketones Trace H (Negative) Urine Blood 1+ H (Negative) Urine Nitrate Negative (Negative) Urine Bilirubin Negative (Negative) Urine Urobilinogen Negative (Negative) Ur Leukocyte Esterase Negative (Negative) Urine WBC (Auto) Absent (Absent) Urine RBC (Auto) 2+(6-10/hpf) H (Absent) Ur Squamous Epith Cells Present H (Absent) Urine Bacteria Absent (Absent) Urine Glucose Negative (Negative) Influenza A (Rapid) Negative (Negative) Influenza B (Rapid) Negative (Negative) Result Diagrams: 06/21/17 19:30 06/21/17 19:30 Lab Statement: Any lab studies that have been ordered have been reviewed, and results considered in the medical decision making process. - CT Abdomen/Pelvis CT Interpretation: No Acute Changes CT Interpretation Completed By: Radiologist - No acute abnormality noted, Nml appendix. Abdominal Pain Fem Course/Dx - Course Course Of Treatment: The pt is a 26 y/o F presenting to the ED with c/o abd pain that began 4 days ago. The pt will be discharged. - Diagnoses Differential Diagnosis: Positive: Appendicitis, Diverticulitis, Renal Colic, Urinary Tract Infection Provider Diagnoses: Abdominal pain, Nausea, Viral syndrome Discharge - Discharge Plan Condition: Stable Disposition: HOME Prescriptions: Ondansetron ODT TAB* [Zofran 4 MG Odt TAB*] 4 mg PO Q8H PRN #15 tab.odt MDD 3 PRN Reason: Nausea Patient Education Materials: Acute Abdominal Pain (ED), Viral Syndrome (ED) Referrals: Jabier Gamez MD [Primary Care Provider] - Additional Instructions: Follow up with PCP in 3 days. Return to the Ed if systems persist or worsen. The documentation as recorded by the Ellis cueva Stephanie accurately reflects the service I personally performed and the decisions made by Héctor patton Emmanuel.
--- NOTE | 2017-06-22 07:55 | RAD ---
INDICATION: Right lower quadrant pain. Evaluate for acute appendicitis COMPARISON: CT abdomen pelvis December 16, 2014 TECHNIQUE: Axial source images were obtained from the hemidiaphragms to the symphysis pubis following administration of oral and intravenous contrast. 103 mL Omnipaque 300 was utilized. Coronal and sagittal reconstructed images were acquired. Lung bases: The lung bases are clear. Liver: The liver is normal in size. There are no masses. There is no ductal dilatation. Gallbladder: Cholecystectomy. Spleen: The spleen is normal in size. There are no masses. Pancreas: There is no focal pancreatic mass or ductal dilatation. Adrenal glands: There is no evidence of adrenal mass. Kidneys: The kidneys are normal in size and position. There are prompt nephrograms and there is prompt excretion bilaterally. There are no renal parenchymal masses. There is no evidence of nephrolithiasis. Adenopathy: There is no evidence of adenopathy by size criteria. Fluid collections: There are no free or localized fluid collections. Vessels:There are no significant atherosclerotic changes involving the aorta. There is no focal aneurysm. The iliac vessels are normal in caliber. The IVC appears normal. GI tract: There are no acute CT bowel findings. There is no obstruction. The stomach and small bowel appear normal. The lower GI tract is normal. The cecum, ileocecal valve, and terminal ileum appear normal. The appendix is visualized and appear normal. Pelvic organs: The uterus and adnexa appear normal. Small bilateral follicles are suspected Bladder: There are no bladder masses. Abdominal and pelvic soft tissues: The extraperitoneal abdominal and pelvic soft tissues appear normal.. Osseous structures: There are no acute osseous findings. Other: None IMPRESSION: NO ACUTE CT FINDINGS. NO MASS OR INFLAMMATORY CHANGES. NORMAL APPENDIX.
== END 2017-06-21 23:18 | disposition home or self-care (01) ==
LOC: ED 17:37
DX: R10.9 Unspecified abdominal pain (principal); R11.0 Nausea; B34.9 Viral infection, unspecified; Z88.3 Allergy status to other anti-infective agents
CPT/HCPCS: 36415; 74177; 80053; 81003; 81015; 83605; 83690; 84702; 85025; 85610; 85730; 87502; 96361; 96374; 96375; 96376; 99285; J2270; J2405; Q9967

== ENCOUNTER 2017-10-17 14:28 | Emergency (ER) | payer SELFPAY ==
--- NOTE | 2017-10-17 15:22 | RAD ---
Indication: Right hand pain. 2 views of the right hand demonstrates no fracture. No other bone or joint abnormality is noted. IMPRESSION: No fracture of the right hand is noted.
[2017-10-17] MEDS ORDERED: Ketorolac INJ* 30 MG/ML 1 ML VIAL IM ONE (15:31)
--- NOTE | 2017-10-17 15:39 | ED ---
Upper Extremity Pain - HPI Summary HPI Summary: 26-year-old female presents with right hand injury today. She states that got hand caught between cart and the wall at work. She has pain over her second and third metacarpal. She denies any numbness or tingling. She denies any wrist pain. She has swelling over this area. She is an abrasion to. She is right-handed. 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 She does not lift anything at work. no other injury. She took Tylenol prior to arrival. - History of Current Complaint Chief Complaint: EDExtremityUpper Stated Complaint: CRUSHED RT HAND IN DOOR Time Seen by Provider: 10/17/17 14:35 Hx Last Menstrual Period: depo august 2016 - Allergies/Home Medications Allergies/Adverse Reactions: Allergies Allergy/AdvReac Type Severity Reaction Status Date / Time ciprofloxacin [From Cipro] Allergy Nausea And Verified 10/17/17 14:34 Vomiting latex Allergy Hives Verified 10/17/17 14:34 PMH/Surg Hx/FS Hx/Imm Hx Endocrine/Hematology History: Denies: Hx Anticoagulant Therapy, Hx Diabetes, Hx Thyroid Disease Cardiovascular History: Denies: Hx Congestive Heart Failure, Hx Deep Vein Thrombosis, Hx Hypertension , Hx Myocardial Infarction, Hx Pacemaker/ICD Respiratory History: Reports: Hx Asthma - albuterol MDI as needed Denies: Hx Chronic Obstructive Pulmonary Disease (COPD), Hx Lung Cancer, Hx Pneumonia, Hx Pulmonary Embolism GI History: Denies: Hx Gall Bladder Disease, Hx Gastrointestinal Bleed, Hx Ulcer, Hx Urosepsis, Other GI Disorders History: Reports: Other Problems/Disorders - OVARIAN CYST Denies: Hx Dialysis, Hx Kidney Stones, Hx Renal Disease Sensory History: Denies: Hx Hearing Aid Neurological History: Denies: Hx Dementia, Hx Migraine, Hx Seizures, Hx Transient Ischemic Attacks (TIA) Psychiatric History: Reports: Hx Anxiety, Hx Depression - started celexa this , Other Psychiatric Issues/Disorders - anxiety on celexa but pt inconsistant with taking Denies: Hx Panic Disorder, Hx Schizophrenia, Hx Bipolar Disorder, Hx Substance Abuse - Surgical History Surgery Procedure, Year, and Place: Gall Bladder. Tonsillectomy & Adenoidectomy. MOLE REMOVED FROM LOWER BACK - Immunization History Date of Tetanus Vaccine: Unknown Date of Influenza Vaccine: None Infectious Disease History: No Infectious Disease History: Denies: Hx Clostridium Difficile, Hx Hepatitis, Hx Human Immunodeficiency Virus (HIV), Hx of Known/Suspected MRSA, Hx Shingles, Hx Tuberculosis, Hx Known/ Suspected VRE, Hx Known/Suspected VRSA, History Other Infectious Disease, Traveled Outside the [place] in Last 30 Days - Family History Known Family History: Positive: Cardiac Disease, Hypertension - Social History Alcohol Use: Occasionally Alcohol Amount: monthly Hx Substance Use: No Substance Use Type: Reports: None Hx Tobacco Use: No Smoking Status (MU): Never Smoked Tobacco Have You Smoked in the Last Year: No Review of Systems Negative: Fever Negative: Chest Pain Negative: Shortness Of Breath Positive: Myalgia - right hand pain All Other Systems Reviewed And Are Negative: Yes Physical Exam Vital Signs On Initial Exam: Initial Vitals Temp Pulse Resp BP Pulse Ox 99.0 F 98 16 130/86 97 10/17/17 14:30 10/17/17 14:30 10/17/17 14:30 10/17/17 14:30 10/17/17 14:30 Diagnostics - Vital Signs Vital Signs Temp Pulse Resp BP Pulse Ox 10/17/17 14:30 99.0 F 98 16 130/86 97 - Laboratory Lab Statement: Any lab studies that have been ordered have been reviewed, and results considered in the medical decision making process. Course/Dx - Course Course Of Treatment: 26-year-old female presents with right hand injury today. She states that got hand caught between cart and the wall at work. She has pain over her second and third metacarpal. She denies any numbness or tingling. She denies any wrist pain. She has swelling over this area. She is an abrasion to. She is right-handed. 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 She does not lift anything at work. no other injury. She took Tylenol prior to arrival. on exam has tenderness 2-3 metacarpel with edema. neg snuff box tendernesss. neurovascular intact. xray shows no fracture. placed in mitchell and will have follow RICE. patient understand and agrees with plan. - Diagnoses Differential Diagnosis/HQI/PQRI: Positive: Fracture (Closed), Strain, Sprain Provider Diagnoses: Injury of right hand Discharge - Sign-Out/Discharge Documenting (check all that apply): Discharge/Admit/Transfer - Discharge Plan Condition: Good Disposition: HOME Patient Education Materials: Crush Injury (ED) Referrals: Magdiel Corbett MD [Primary Care Provider] - Additional Instructions: Take Tylenol or ibuprofen every 6 hours as needed for pain Apply ice, rest, elevate Keep mitchell on area Follow up with primary care physician within 5 days Return to ED if develop any new or worsening symptoms - Billing Disposition and Condition Condition: GOOD Disposition: HOME
[2017-10-17 15:49] VITALS: BP 112/69
== END 2017-10-17 15:48 | disposition home or self-care (01) ==
LOC: ED 14:28
DX: S69.91XA Unspecified injury of right wrist, hand and finger(s), initial encounter (principal); W23.0XXA Caught, crushed, jammed, or pinched between moving objects, initial encounter; Y92.9 Unspecified place or not applicable; J45.909 Unspecified asthma, uncomplicated
CPT/HCPCS: 96372; 99282; J1885

== ENCOUNTER 2017-11-21 08:40 | Emergency (ER) | payer OTHER ==
[2017-11-21 09:47] VITALS: BP 106/81
--- NOTE | 2017-11-21 09:59 | ED ---
Throat Pain/Nasal Congestion - HPI Summary HPI Summary: Patient is a 26-year-old female with significant history of multiple strep throat with a tonsillectomy presents to the ED with complaint of bilateral throat pain without fevers, sweats, chills. Endorses odynophagia, but denies dysphagia. Decreased fluid intake. She states she has been otherwise well. Denies any sick contacts. Denies any abdominal pain, nausea, vomiting, chest pain, shortness of breath. Endorses a mild amount of bilateral ear pain. - History of Current Complaint Chief Complaint: EDThroatPain Time Seen by Provider: 11/21/17 08:45 Hx Obtained From: Patient Onset/Duration: Sudden Onset Severity: Moderate Associated Signs And Symptoms: Positive: Dysphagia - odynophagia - Epiglottits Risk Factors Epiglottis Risk Factors: Negative - Allergies/Home Medications Allergies/Adverse Reactions: Allergies Allergy/AdvReac Type Severity Reaction Status Date / Time ciprofloxacin [From Cipro] Allergy Nausea And Verified 10/17/17 14:34 Vomiting latex Allergy Hives Verified 10/17/17 14:34 PMH/Surg Hx/FS Hx/Imm Hx Previously Healthy: Yes Endocrine/Hematology History: Denies: Hx Anticoagulant Therapy, Hx Diabetes, Hx Thyroid Disease Cardiovascular History: Denies: Hx Congestive Heart Failure, Hx Deep Vein Thrombosis, Hx Hypertension , Hx Myocardial Infarction, Hx Pacemaker/ICD Respiratory History: Reports: Hx Asthma - albuterol MDI as needed Denies: Hx Chronic Obstructive Pulmonary Disease (COPD), Hx Lung Cancer, Hx Pneumonia, Hx Pulmonary Embolism GI History: Denies: Hx Gall Bladder Disease, Hx Gastrointestinal Bleed, Hx Ulcer, Hx Urosepsis, Other GI Disorders History: Reports: Other Problems/Disorders - OVARIAN CYST Denies: Hx Dialysis, Hx Kidney Stones, Hx Renal Disease Sensory History: Denies: Hx Hearing Aid Neurological History: Denies: Hx Dementia, Hx Migraine, Hx Seizures, Hx Transient Ischemic Attacks (TIA) Psychiatric History: Reports: Hx Anxiety, Hx Depression - started celexa this , Other Psychiatric Issues/Disorders - anxiety on celexa but pt inconsistant with taking Denies: Hx Panic Disorder, Hx Schizophrenia, Hx Bipolar Disorder, Hx Substance Abuse - Surgical History Surgery Procedure, Year, and Place: Gall Bladder. Tonsillectomy & Adenoidectomy. MOLE REMOVED FROM LOWER BACK - Immunization History Date of Tetanus Vaccine: Unknown Date of Influenza Vaccine: None Hx Pertussis Vaccination: No Immunizations Up to Date: Unable to Obtain/Confirm Infectious Disease History: No Infectious Disease History: Denies: Hx Clostridium Difficile, Hx Hepatitis, Hx Human Immunodeficiency Virus (HIV), Hx of Known/Suspected MRSA, Hx Shingles, Hx Tuberculosis, Hx Known/ Suspected VRE, Hx Known/Suspected VRSA, History Other Infectious Disease, Traveled Outside the [place] in Last 30 Days - Family History Known Family History: Positive: Cardiac Disease, Hypertension - Social History Alcohol Use: Occasionally Alcohol Amount: monthly Hx Substance Use: No Substance Use Type: Reports: None Hx Tobacco Use: No Smoking Status (MU): Never Smoked Tobacco Have You Smoked in the Last Year: No Review of Systems Negative: Fever, Chills Positive: Sore Throat, Ear Ache Negative: Palpitations, Chest Pain Negative: Shortness Of Breath, Cough Genitourinary: Negative Positive: no symptoms reported Negative: Arthralgia, Myalgia Skin: Negative Psychological: Normal All Other Systems Reviewed And Are Negative: Yes Physical Exam Triage Information Reviewed: Yes Vital Signs On Initial Exam: Initial Vitals Temp Pulse Resp BP Pulse Ox 98.1 F 94 18 124/77 99 11/21/17 08:48 11/21/17 08:48 11/21/17 08:48 11/21/17 08:48 11/21/17 08:48 Vital Signs Reviewed: Yes Appearance: Positive: No Pain Distress, Well-Nourished Skin: Positive: Warm, Skin Color Reflects Adequate Perfusion Head/Face: Positive: Normal Head/Face Inspection Eyes: Positive: EOMI, YUKI, Conjunctiva Clear ENT: Positive: Pharyngeal erythema, TMs normal, Tonsillar swelling. Negative: Nasal congestion, Nasal drainage, Tonsillar exudate, Muffled voice, Hoarse voice , Dental tenderness, Sinus tenderness Neck: Positive: Supple, No Lymphadenopathy Respiratory/Lung Sounds: Positive: Clear to Auscultation, Breath Sounds Present Cardiovascular: Positive: RRR, Pulses are Symmetrical in both Upper and Lower Extremities Musculoskeletal: Positive: Normal, Strength/ROM Intact Neurological: Positive: Speech Normal Psychiatric: Positive: Normal Diagnostics - Vital Signs Vital Signs Temp Pulse Resp BP Pulse Ox 11/21/17 09:46 98.5 F 88 16 106/81 98 11/21/17 08:48 98.1 F 94 18 124/77 99 - Laboratory Lab Results: Lab Results 11/21/17 Range/Units 09:15 Group A Strep Rapid Positive A (Negative) Lab Statement: Any lab studies that have been ordered have been reviewed, and results considered in the medical decision making process. EENT Course/Dx - Course Course Of Treatment: On physical examination, pharyngeal erythema without bilateral exudates. Noted cervical LAD. Bilateral TMs without erythema or evidence of infection. No drooling or airway difficulty. Denies shortness of breath. No evidence of peritonsillar abscess. Uvula midline. Strep swab obtained and is positive. Patient is given penicillin 500 mg twice a day 10 days. Note given for work 24 hours. She is encouraged Tylenol and ibuprofen as well as Cepacol tabs. - Diagnoses Provider Diagnoses: Strep throat Discharge - Sign-Out/Discharge Documenting (check all that apply): Discharge/Admit/Transfer - Discharge Plan Condition: Stable Disposition: HOME Prescriptions: Penicillin VK 500 MG TAB(NF) [Penicillin VK 500 mg Tab(NF)] 500 mg PO BID #20 tab MDD 2 Patient Education Materials: Strep Throat (ED) Forms: *Work Release Referrals: Magdiel Corbett MD [Primary Care Provider] - Additional Instructions: Cepacol tabs will help with discomfort Ibuprofen and tylenol - use intermittently Out of work x 1 day - Billing Disposition and Condition Condition: STABLE Disposition: Home
== END 2017-11-21 09:46 | disposition home or self-care (01) ==
LOC: ED 08:40
DX: J02.0 Streptococcal pharyngitis (principal); Z90.89 Acquired absence of other organs; Z88.3 Allergy status to other anti-infective agents
CPT/HCPCS: 87651; 99282

== ENCOUNTER 2018-08-16 17:47 | Emergency (ER) | payer OTHER ==
[2018-08-16 19:58] LABS: Influenza A Molecular NEGATIVE (Negative); Influenza B Molecular NEGATIVE (Negative)
[2018-08-16] MEDS ORDERED: Ibuprofen TAB* 600 MG PO ONE (19:58)
[2018-08-16 20:42] LABS: Urine Appearance Cloudy; Urine Bacteria Absent (Absent); Urine Bilirubin Negative (Negative); Urine Blood 1+ (Negative); Urine Color Yellow; Urine Glucose Negative (Negative); Urine Ketones Negative (Negative); Urine Nitrite Negative (Negative); Urine Protein Negative (Negative); Urine Red Blood Cell 3+(>10/hpf) (Absent); Urine Specific Gravity 1.029 (1.010-1.030); Urine Squamous Epithelial Cell Present (Absent); Urine Urobilinogen Positive (Negative); Urine White Blood Cell 3+(>20/hpf) (Absent)
[2018-08-16] MEDS ORDERED: Amoxicillin/Clavulanate TAB* 500 MG PO ONE (20:56)
--- NOTE | 2018-08-16 20:58 | ED ---
GI/ HPI - HPI Summary HPI Summary: 27-year-old female presents with flu symptoms for the past 3 days. She admits to occasional cough. She states she had fevers and chills. she admits to generalized body aches. she admits to occasionally headache. No neck stiffness. No photophobia. No nausea vomiting. No bowel pain. No diarrhea. she admits to dysuria, urgency and frequency starting today. Has history of UTIs. Denies any flank pain. - History of Current Complaint Chief Complaint: EDFluSymptoms Time Seen by Provider: 08/16/18 19:53 Stated Complaint: "FEVER/ COLD VOMITING PER PT" Hx Last Menstrual Period: depo august 2016 Pain Intensity: 5 - Allergy/Home Medications Allergies/Adverse Reactions: Allergies Allergy/AdvReac Type Severity Reaction Status Date / Time ciprofloxacin [From Cipro] Allergy Nausea And Verified 08/16/18 17:54 Vomiting latex Allergy Hives Verified 08/16/18 17:54 PMH/Surg Hx/FS Hx/Imm Hx Endocrine/Hematology History: Denies: Hx Anticoagulant Therapy, Hx Diabetes, Hx Thyroid Disease Cardiovascular History: Denies: Hx Congestive Heart Failure, Hx Deep Vein Thrombosis, Hx Hypertension , Hx Myocardial Infarction, Hx Pacemaker/ICD Respiratory History: Reports: Hx Asthma - albuterol MDI as needed Denies: Hx Chronic Obstructive Pulmonary Disease (COPD), Hx Lung Cancer, Hx Pneumonia, Hx Pulmonary Embolism GI History: Denies: Hx Gall Bladder Disease, Hx Gastrointestinal Bleed, Hx Ulcer, Hx Urosepsis, Other GI Disorders History: Reports: Other Problems/Disorders - OVARIAN CYST Denies: Hx Dialysis, Hx Kidney Stones, Hx Renal Disease Neurological History: Denies: Hx Dementia, Hx Migraine, Hx Seizures, Hx Transient Ischemic Attacks (TIA) Psychiatric History: Reports: Hx Anxiety, Hx Depression - started celexa this , Other Psychiatric Issues/Disorders - anxiety on celexa but pt inconsistant with taking Denies: Hx Panic Disorder, Hx Schizophrenia, Hx Bipolar Disorder, Hx Substance Abuse - Surgical History Surgery Procedure, Year, and Place: Gall Bladder. Tonsillectomy & Adenoidectomy. MOLE REMOVED FROM LOWER BACK - Immunization History Date of Tetanus Vaccine: Unknown Date of Influenza Vaccine: None Infectious Disease History: No Infectious Disease History: Denies: Hx Clostridium Difficile, Hx Hepatitis, Hx Human Immunodeficiency Virus (HIV), Hx of Known/Suspected MRSA, Hx Shingles, Hx Tuberculosis, Hx Known/ Suspected VRE, Hx Known/Suspected VRSA, History Other Infectious Disease, Traveled Outside the [place] in Last 30 Days - Family History Known Family History: Positive: Cardiac Disease, Hypertension - Social History Alcohol Use: Occasionally Alcohol Amount: monthly Hx Substance Use: No Substance Use Type: Reports: None Hx Tobacco Use: No Smoking Status (MU): Never Smoked Tobacco Have You Smoked in the Last Year: No Review of Systems Positive: Fever, Chills Negative: Chest Pain Positive: Cough. Negative: Shortness Of Breath Negative: Abdominal Pain Positive: dysuria, frequency. Negative: flank pain All Other Systems Reviewed And Are Negative: Yes Physical Exam Triage Information Reviewed: Yes Vital Signs On Initial Exam: Initial Vitals Temp Pulse Resp BP Pulse Ox 97.9 F 107 20 126/83 98 08/16/18 17:49 08/16/18 17:49 08/16/18 17:49 08/16/18 17:49 08/16/18 17:49 Vital Signs Reviewed: Yes Appearance: Positive: Well-Appearing Skin: Positive: Warm, Dry Head/Face: Positive: Normal Head/Face Inspection Eyes: Positive: Normal, EOMI, YUKI, Conjunctiva Clear ENT: Positive: Normal ENT inspection, Pharynx normal, TMs normal Neck: Positive: Supple, Nontender, No Lymphadenopathy Respiratory/Lung Sounds: Positive: Clear to Auscultation, Breath Sounds Present Cardiovascular: Positive: Normal, RRR Abdomen Description: Positive: Nontender, Soft. Negative: CVA Tenderness (R), CVA Tenderness (L) Bowel Sounds: Positive: Present Musculoskeletal: Positive: Normal Neurological: Positive: Normal Psychiatric: Positive: Normal Diagnostics - Vital Signs Vital Signs Temp Pulse Resp BP Pulse Ox 08/16/18 17:49 97.9 F 107 20 126/83 98 - Laboratory Lab Results: Lab Results 08/16/18 08/16/18 Range/Units 18:10 19:46 Urine Color Yellow Urine Appearance Cloudy Urine pH 5.0 (5-9) Ur Specific [place] 1.029 (1.010-1.030) Urine Protein Negative (Negative) Urine Ketones Negative (Negative) Urine Blood 1+ A (Negative) Urine Nitrate Negative (Negative) Urine Bilirubin Negative (Negative) Urine Urobilinogen Positive A (Negative) Ur Leukocyte Esterase 2+ A (Negative) Urine WBC (Auto) 3+(>20/hpf) A (Absent) Urine RBC (Auto) 3+(>10/hpf) A (Absent) Ur Squamous Epith Cells Present A (Absent) Urine Bacteria Absent (Absent) Urine Glucose Negative (Negative) Influenza A (Rapid) Negative (Negative) Influenza B (Rapid) Negative (Negative) Lab Statement: Any lab studies that have been ordered have been reviewed, and results considered in the medical decision making process. GIGU Course/Dx - Course Course Of Treatment: 27-year-old female presents with flu symptoms for the past 3 days. She admits to occasional cough. She states she had fevers and chills. she admits to generalized body aches. she admits to occasionally headache. No neck stiffness. No photophobia. No nausea vomiting. No bowel pain. No diarrhea. she admits to dysuria, urgency and frequency starting today. Has history of UTIs. Denies any flank pain. on exam lungs clear auscultation. abd Soft nontender. Nontender flanks. Urine shows a UTI. Flu negative. Will treat UTI with Augmentin. gave Pyridium for pain. other symptoms likely due to viral syndrome. told follow up with primary if no improvement. Patient understands and agrees with plan. - Diagnoses Differential Diagnoses - Female: Pyelonephritis, Urinary Tract Infection, Other - flu Provider Diagnoses: UTI (urinary tract infection), Viral syndrome Discharge - Sign-Out/Discharge Documenting (check all that apply): Patient Departure Patient Received Moderate/Deep Sedation with Procedure: No - Discharge Plan Condition: Good Disposition: HOME Prescriptions: Amoxicillin/Clavulanate TAB* [Augmentin TAB 500 mg*] 500 mg PO BID #9 tab Ondansetron TAB* [Zofran 4 MG Tab*] 4 mg PO Q6H PRN #12 tab PRN Reason: Nausea Phenazopyridine 200 mg (NF) [Pyridium 200 MG tab *] 200 mg PO TID PRN #5 tab PRN Reason: Pain Patient Education Materials: Urinary Tract Infection in Women (ED) Forms: *Work Release Referrals: Magdiel Corbett MD [Primary Care Provider] - Additional Instructions: Take augmetin twice a day for 5 days, first dose given in ED Take pyridium three times a day with food for 2 days, first dose given in ED take zofran every 6 hours as needed for nausea Drink plenty of fluids Follow up with primary in 7 days Return to ED if develop any new or worsening symptoms - Billing Disposition and Condition Condition: GOOD Disposition: Home
[2018-08-16] MEDS ORDERED: Ondansetron ODT TAB* 4 MG PO ONE (21:01)
[2018-08-16] MEDS ORDERED: Phenazopyridine TAB* 100 MG PO ONE (21:01)
[2018-08-16 21:19] VITALS: BP 128/78
--- NOTE | 2018-08-19 07:48 | PN ---
Progress Note - Progress Note Date of Service: 08/16/18 Note: Urine culture final grew Escherichia coli 100,000 Patient was placed on Augmentin prior to discharge This is sensitive to organism Nothing further is needed at this time
== END 2018-08-16 21:17 | disposition home or self-care (01) ==
LOC: ED 17:47
DX: N39.0 Urinary tract infection, site not specified (principal); B34.9 Viral infection, unspecified; R50.9 Fever, unspecified; R05 Cough
CPT/HCPCS: 81003; 81015; 87077; 87086; 87186; 99282; A9270-GY

== ENCOUNTER 2018-10-23 12:40 | Emergency (ER) | payer OTHER ==
[2018-10-23 12:50] VITALS: BP 115/85
--- NOTE | 2018-10-23 18:10 | ED ---
Upper Extremity Pain - HPI Summary HPI Summary: Pt. is a 27 y.o female who presents to the ER for right arm pain x several days. Pt. does not recall any injuries but states she works at [employer] and does a lot of heavy lifting. Pain is exacerbated by movement and lifting. Denies fever, chills, numbness, tingling or weakness. Sxs are mild in severity. Pt. notes she needed to leave work today secondary to pain. - History of Current Complaint Chief Complaint: EDExtremityUpper Stated Complaint: RIGHT ARM PAIN Time Seen by Provider: 10/23/18 13:07 Hx Obtained From: Patient Hx Last Menstrual Period: depo august 2016 - Allergies/Home Medications Allergies/Adverse Reactions: Allergies Allergy/AdvReac Type Severity Reaction Status Date / Time ciprofloxacin [From Cipro] Allergy Nausea And Verified 10/23/18 12:51 Vomiting latex Allergy Hives Verified 10/23/18 12:51 Home Medications: Home Medications Ibuprofen TAB* [Advil TAB*] 800 mg PO Q8H PRN 10/23/18 [History Confirmed ] PMH/Surg Hx/FS Hx/Imm Hx Previously Healthy: Yes Endocrine/Hematology History: Denies: Hx Anticoagulant Therapy, Hx Diabetes, Hx Thyroid Disease Cardiovascular History: Denies: Hx Congestive Heart Failure, Hx Deep Vein Thrombosis, Hx Hypertension , Hx Myocardial Infarction, Hx Pacemaker/ICD Respiratory History: Reports: Hx Asthma - albuterol MDI as needed Denies: Hx Chronic Obstructive Pulmonary Disease (COPD), Hx Lung Cancer, Hx Pneumonia, Hx Pulmonary Embolism GI History: Denies: Hx Gall Bladder Disease, Hx Gastrointestinal Bleed, Hx Ulcer, Hx Urosepsis, Other GI Disorders History: Reports: Other Problems/Disorders - OVARIAN CYST Denies: Hx Dialysis, Hx Kidney Stones, Hx Renal Disease Neurological History: Denies: Hx Dementia, Hx Migraine, Hx Seizures, Hx Transient Ischemic Attacks (TIA) Psychiatric History: Reports: Hx Anxiety, Hx Depression - started celexa this , Other Psychiatric Issues/Disorders - anxiety on celexa but pt inconsistant with taking Denies: Hx Panic Disorder, Hx Schizophrenia, Hx Bipolar Disorder, Hx Substance Abuse - Surgical History Surgery Procedure, Year, and Place: Gall Bladder. Tonsillectomy & Adenoidectomy. MOLE REMOVED FROM LOWER BACK - Immunization History Date of Tetanus Vaccine: Unknown Date of Influenza Vaccine: None Infectious Disease History: No Infectious Disease History: Denies: Hx Clostridium Difficile, Hx Hepatitis, Hx Human Immunodeficiency Virus (HIV), Hx of Known/Suspected MRSA, Hx Shingles, Hx Tuberculosis, Hx Known/ Suspected VRE, Hx Known/Suspected VRSA, History Other Infectious Disease, Traveled Outside the [place] in Last 30 Days - Family History Known Family History: Positive: Cardiac Disease, Hypertension, Non-Contributory - Social History Occupation: Employed Full-time Lives: With Family Alcohol Use: Occasionally Alcohol Amount: monthly Hx Substance Use: No Substance Use Type: Reports: None Hx Tobacco Use: No Smoking Status (MU): Never Smoked Tobacco Have You Smoked in the Last Year: No Review of Systems Constitutional: Negative Negative: Fever Positive: Other - Mid right arm pain Skin: Negative Negative: Rash, Bruising Neurological: Negative Negative: Weakness, Paresthesia, Numbness All Other Systems Reviewed And Are Negative: Yes Physical Exam Triage Information Reviewed: Yes Vital Signs On Initial Exam: Initial Vitals Temp Pulse Resp BP Pulse Ox 97.8 F 106 17 115/85 98 10/23/18 12:48 10/23/18 12:48 10/23/18 12:48 10/23/18 12:48 10/23/18 12:48 Vital Signs Reviewed: Yes Appearance: Positive: Well-Appearing - Pt. sitting on bed in NAD. Skin: Positive: Warm, Dry Head/Face: Positive: Normal Head/Face Inspection Eyes: Positive: Normal, EOMI, YUKI Neck: Positive: Supple Musculoskeletal: Positive: Other - Right arm with good radial pulse. 5/5 strength in hand. Pain on palpation over right medial epicondyle. No erythema, edema, wounds, ecchymosis. Mild pain with ROM. Neurological: Positive: Normal, CN Intact II-III Psychiatric: Positive: Affect/Mood Appropriate Diagnostics - Vital Signs Vital Signs Temp Pulse Resp BP Pulse Ox 10/23/18 13:50 97.8 F 95 16 115/85 98 10/23/18 12:48 97.8 F 106 17 115/85 98 - Laboratory Lab Statement: Any lab studies that have been ordered have been reviewed, and results considered in the medical decision making process. Course/Dx - Course Course Of Treatment: Pt. presenting with right arm pain without known injury. Pt. does a lot of lifting at work. Xray negative for acute findings. Suspect tendonitis. Will tx with naproxen, rest and ice. Work excuse given. To f.u with PCP and return to ER if sxs change or worsen. Pt. understands and agrees with plan. - Diagnoses Differential Diagnosis/HQI/PQRI: Positive: Arthritis, Bursitis, Contusion, Fracture (Closed), Strain, Sprain Provider Diagnoses: Tendonitis Discharge - Sign-Out/Discharge Documenting (check all that apply): Patient Departure Patient Received Moderate/Deep Sedation with Procedure: No - Discharge Plan Condition: Good Disposition: HOME Prescriptions: Naproxen [Naproxen 500 mg tab] 500 mg PO BID #20 tablet Patient Education Materials: Tennis Elbow (ED) Forms: *Work Release Referrals: Gabby Lim MD [Primary Care Provider] - Additional Instructions: Schedule a follow up appointment with your PCP Ice and elevate intermittently Naproxen as directed for pain Activity as tolerated Return to ER if symptoms change or worsen - Billing Disposition and Condition Condition: GOOD Disposition: Home
== END 2018-10-23 13:50 | disposition home or self-care (01) ==
LOC: ED 12:40
DX: M77.9 Enthesopathy, unspecified (principal); M79.601 Pain in right arm; Z88.6 Allergy status to analgesic agent
CPT/HCPCS: 99282

== ENCOUNTER 2018-12-11 09:04 | Emergency (ER) | payer OTHER ==
[2018-12-11] MEDS ORDERED: Ketorolac INJ* 30 MG/ML 1 ML VIAL IM ONE (09:44)
--- NOTE | 2018-12-11 09:44 | ED ---
GI/ HPI - HPI Summary HPI Summary: 28-year-old female presents with abdominal pain for the past 2 days. States that started periumbilical lower abdomen. States though has had intermittent cramping pain for the past week. She states that symptoms started after started control. States she's been having irregular spotting prior to starting control. Has had no vaginal or abdominal vaginal discharge. She admits to nausea but no vomiting. No diarrhea constipation. has had her gallbladder removed. Has never had this before. Has been taking naproxen which was helping is not helping anymore. - History of Current Complaint Chief Complaint: EDAbdPain Time Seen by Provider: 12/11/18 09:13 Stated Complaint: ABDOMINAL PAIN/BODY ACHES PER PATIENT Hx Last Menstrual Period: depo august 2016 Pain Intensity: 7 - Allergy/Home Medications Allergies/Adverse Reactions: Allergies Allergy/AdvReac Type Severity Reaction Status Date / Time ciprofloxacin [From Cipro] Allergy Nausea And Verified 12/11/18 09:07 Vomiting latex Allergy Hives Verified 12/11/18 09:07 Home Medications: Home Medications Naproxen [Naproxen 500 mg tab] 500 mg PO BID PRN 12/11/18 [History Confirmed ] Norethindrone AC-Eth Estradiol [Loestrin 1-20 mg-Mcg] 1 tab PO DAILY [History Confirmed 12/11/18] Phendimetrazine Tartrate 2 tab PO TID 12/11/18 [History Confirmed 12/11/18] PMH/Surg Hx/FS Hx/Imm Hx Endocrine/Hematology History: Denies: Hx Anticoagulant Therapy, Hx Diabetes, Hx Thyroid Disease Cardiovascular History: Denies: Hx Congestive Heart Failure, Hx Deep Vein Thrombosis, Hx Hypertension , Hx Myocardial Infarction, Hx Pacemaker/ICD Respiratory History: Reports: Hx Asthma - albuterol MDI as needed Denies: Hx Chronic Obstructive Pulmonary Disease (COPD), Hx Lung Cancer, Hx Pneumonia, Hx Pulmonary Embolism GI History: Denies: Hx Gall Bladder Disease, Hx Gastrointestinal Bleed, Hx Ulcer, Hx Urosepsis, Other GI Disorders History: Reports: Other Problems/Disorders - OVARIAN CYST Denies: Hx Dialysis, Hx Kidney Stones, Hx Renal Disease Neurological History: Denies: Hx Dementia, Hx Migraine, Hx Seizures, Hx Transient Ischemic Attacks (TIA) Psychiatric History: Reports: Hx Anxiety, Hx Depression - started celexa this , Other Psychiatric Issues/Disorders - anxiety on celexa but pt inconsistant with taking Denies: Hx Panic Disorder, Hx Schizophrenia, Hx Bipolar Disorder, Hx Substance Abuse - Surgical History Surgery Procedure, Year, and Place: Gall Bladder. Tonsillectomy & Adenoidectomy. MOLE REMOVED FROM LOWER BACK - Immunization History Date of Tetanus Vaccine: Unknown Date of Influenza Vaccine: None Infectious Disease History: No Infectious Disease History: Denies: Hx Clostridium Difficile, Hx Hepatitis, Hx Human Immunodeficiency Virus (HIV), Hx of Known/Suspected MRSA, Hx Shingles, Hx Tuberculosis, Hx Known/ Suspected VRE, Hx Known/Suspected VRSA, History Other Infectious Disease, Traveled Outside the [place] in Last 30 Days - Family History Known Family History: Positive: Cardiac Disease, Hypertension, Non-Contributory - Social History Alcohol Use: Occasionally Alcohol Amount: monthly Hx Substance Use: No Substance Use Type: Reports: None Hx Tobacco Use: No Smoking Status (MU): Never Smoked Tobacco Have You Smoked in the Last Year: No Review of Systems Negative: Fever Negative: Chest Pain Negative: Shortness Of Breath Positive: Abdominal Pain, Nausea. Negative: Vomiting, Diarrhea All Other Systems Reviewed And Are Negative: Yes Physical Exam Triage Information Reviewed: Yes Vital Signs On Initial Exam: Initial Vitals Temp Pulse Resp BP Pulse Ox 97.8 F 99 16 117/78 100 12/11/18 09:07 12/11/18 09:07 12/11/18 09:07 12/11/18 09:07 12/11/18 09:07 Vital Signs Reviewed: Yes Appearance: Positive: Well-Appearing Skin: Positive: Warm, Dry Head/Face: Positive: Normal Head/Face Inspection Eyes: Positive: Normal, Conjunctiva Clear ENT: Positive: Pharynx normal Respiratory/Lung Sounds: Positive: Clear to Auscultation, Breath Sounds Present Cardiovascular: Positive: Normal, RRR Abdomen Description: Positive: Soft, Other: - tenderness pelvic area Bowel Sounds: Positive: Present Pelvic Exam: Positive: External Exam Normal, Speculum Exam Normal, Bimanual Exam Normal, No Cerv. Motion Tender, Tender Uterus Musculoskeletal: Positive: Normal Neurological: Positive: Normal Psychiatric: Positive: Normal Diagnostics - Vital Signs Vital Signs Temp Pulse Resp BP Pulse Ox 12/11/18 09:07 97.8 F 99 16 117/78 100 - Laboratory Result Diagrams: 12/11/18 09:40 12/11/18 09:40 Lab Statement: Any lab studies that have been ordered have been reviewed, and results considered in the medical decision making process. - Ultrasound No standard instances Ultrasound Interpretation Completed By: Radiologist Summary of Ultrasound Findings: IMPRESSION: Left ovary not visualized. Small amount of fluid is noted in the endometrium. GIGU Course/Dx - Course Course Of Treatment: 28-year-old female presents with abdominal pain for the past 2 days. States that started periumbilical lower abdomen. States though has had intermittent cramping pain for the past week. She states that symptoms started after started control. States she's been having irregular spotting prior to starting control. Has had no vaginal or abdominal vaginal discharge. She admits to nausea but no vomiting. No diarrhea constipation. has had her gallbladder removed. Has never had this before. Has been taking naproxen which was helping is not helping anymore. On exam tenderness suprapubic. wbc normal. pelvic mild bleeding noted and some vaginal discharge which will wait for culture about. no CMT. ultrasound some fluid in endometrium. is nontender over left ovary so do not suspect pathology on left ovary as was not seen on u/s. urine shows uti. augmentin twice a day for 5 days. patient understand and agrees with plan. - Diagnoses Differential Diagnoses - Female: Ovarian Cyst, STD, Urinary Tract Infection Provider Diagnoses: Pelvic pain, UTI (urinary tract infection) Discharge - Sign-Out/Discharge Documenting (check all that apply): Patient Departure Patient Received Moderate/Deep Sedation with Procedure: No - Discharge Plan Condition: Good Disposition: HOME Prescriptions: Amoxicillin/Clavulanate TAB* [Augmentin TAB 875*] 875 mg PO BID #10 tab Patient Education Materials: Pelvic Pain in Women (ED) Referrals: Gabby Lim MD [Medical Doctor] - Additional Instructions: follow up with primary or electronic publishing specialist take augmentin twice a day for 5 days Take tyenlol or ibuprofen every 6 hours as needed for pain Return to ED if develop any new or worsening symptoms - Billing Disposition and Condition Condition: GOOD Disposition: Home - Attestation Statements Provider Attestation: I was available for consult. This patient was seen by the MIRTHA. The patient was not presented to, seen by, or examined by me. -Lacie
[2018-12-11 09:55] LABS: ABS Eosinophils 0.1 10^3/ul (0-0.6); ABS Lymphocytes 1.1 10^3/ul (1.0-4.8); ABS Monocytes 0.6 10^3/ul (0-0.8); ABS Neutrophils 5.3 10^3/ul (1.5-7.7); Eosinophil % 0.9 %; Hematocrit 41 % (35-47); Hemoglobin 14.1 g/dL (12.0-16.0); Lymphocyte % 15.7 %; Mean Corpuscular HGB Conc 34 g/dL (31-36); Mean Corpuscular Hemoglobin 30 pg (27-31); Mean Corpuscular Volume 88 fL (80-97); Mean Platelet Volume 8.7 fL (7.4-10.4); Platelet Count 209 10^3/uL (150-450); Red Blood Count 4.63 10^6 /uL (3.70-4.87); Red Cell Distribution Width 13 % (10-15)
[2018-12-11 10:18] LABS: ALT 38 U/L (7-52); AST 26 U/L (13-39); Albumin/Globulin Ratio 1.7 (1-3); Alkaline Phosphatase 89 U/L (34-104); Anion Gap 9 mmol/L (2-11); BUN/Creatinine Ratio 23.1 (8-20); Blood Urea Nitrogen 15 mg/dL (6-24); C Reactive Protein 15.57 mg/L (<8.01); CO2 Carbon Dioxide 24 mmol/L (22-32); Calcium 9.2 mg/dL (8.6-10.3); Chloride 106 mmol/L (101-111); EGFR African American 130.4 (>60); EGFR Non-African American 107.8 (>60); Globulin 2.4 g/dL (2-4); Glucose 74 mg/dL (70-100); Sodium 139 mmol/L (135-145); Total Protein 6.4 g/dL (6.4-8.9)
[2018-12-11 10:21] LABS: HCG Pregnancy < 0.60 mIU/mL
[2018-12-11 11:23] VITALS: BP 116/79
[2018-12-11 11:46] LABS: Urine Appearance Clear; Urine Bacteria Absent (Absent); Urine Bilirubin Negative (Negative); Urine Blood 2+ (Negative); Urine Color Amber; Urine Glucose Negative (Negative); Urine Ketones 2+ (Negative); Urine Nitrite Negative (Negative); Urine Protein Negative (Negative); Urine Red Blood Cell 2+(6-10/hpf) (Absent); Urine Specific Gravity 1.019 (1.010-1.030); Urine Squamous Epithelial Cell Present (Absent); Urine Urobilinogen Negative (Negative); Urine White Blood Cell 3+(>20/hpf) (Absent)
== END 2018-12-11 11:23 | disposition home or self-care (01) ==
LOC: ED 09:04
DX: N39.0 Urinary tract infection, site not specified (principal); Z88.1 Allergy status to other antibiotic agents; Z91.040 Latex allergy status; Z79.899 Other long term (current) drug therapy
CPT/HCPCS: 36415; 76830; 80053; 81003; 81015; 83605; 83690; 84702; 85025; 86140; 87086; 87480; 87491; 87510; 87591; 87661; 96372; 99283; J1885

== ENCOUNTER 2020-04-03 16:54 | Observation (INO) ==
[2020-04-03] MEDS ORDERED: Albuterol HFA INHALER 8 gm MDI INH ONE (18:19)
[2020-04-03] MEDS ORDERED: methylPREDNISolone 125 mg 2 ML VIAL IV ONE (18:19)
[2020-04-03] MEDS ORDERED: NS 0.9% 1000 ml BAG 2,180 ML IV ONE (18:19)
[2020-04-03] MEDS ORDERED: Ondansetron 4 mg VIAL 2 MG/ML 2 ml VIAL IV ONE (18:35)
[2020-04-03 19:22] LABS: Hematocrit 40 % (35-47); Hemoglobin 13.9 g/dL (12.0-16.0); Mean Corpuscular HGB Conc 35 g/dL (31-36); Mean Corpuscular Hemoglobin 31 pg (27-31); Mean Corpuscular Volume 88 fL (80-97); Mean Platelet Volume 8.9 fL (7.4-10.4); Platelet Count 171 10^3/uL (150-450); Red Cell Distribution Width 13 % (10-15); White Blood Count 3.7 10^3/uL (3.5-10.8)
[2020-04-03 19:26] LABS: ABS Lymphocytes 0.6 10^3/ul (1.0-4.8); ABS Monocytes 0.3 10^3/ul (0-0.8); ABS Neutrophils 2.9 10^3/ul (1.5-7.7); Eosinophil % 0.5 %; Lymphocyte % 15.9 %; Nucleated Red Blood Cells % 0.2
[2020-04-03 19:33] LABS: ALT 15 U/L (7-52); AST 21 U/L (13-39); Albumin 3.9 g/dL (3.2-5.2); Albumin/Globulin Ratio 1.4 (1-3); Alkaline Phosphatase 68 U/L (34-104); Anion Gap 6 mmol/L (2-11); BUN/Creatinine Ratio 15.9 (8-20); Blood Urea Nitrogen 11 mg/dL (6-24); CO2 Carbon Dioxide 23 mmol/L (22-32); Calcium 8.4 mg/dL (8.6-10.3); Chloride 105 mmol/L (101-111); EGFR African American 120.9 (>60); EGFR Non-African American 99.9 (>60); Globulin 2.8 g/dL (2-4); Glucose 82 mg/dL (70-100); Potassium 3.5 mmol/L (3.5-5.0); Sodium 134 mmol/L (135-145); Total Protein 6.7 g/dL (6.4-8.9)
[2020-04-03 19:39] LABS: HCG Pregnancy < 0.60 mIU/mL
[2020-04-03 19:45] LABS: Activated Partial Thrombo Time 25.6 seconds (26.0-38.0); INR 1.02 (0.82-1.09)
[2020-04-03 19:51] LABS: LDH 157 U/L (140-271)
[2020-04-03 19:57] LABS: Influenza A Molecular Negative (Negative); Influenza B Molecular Negative (Negative)
[2020-04-03 20:03] LABS: Ferritin 68.4 ng/mL (11-307)
[2020-04-03] MEDS ORDERED: Albuterol/Ipratropium NEB.SOL (2.5/0.5 MG) 3 ML NEB.SOLN INH ONE (20:13)
[2020-04-03] MEDS ORDERED: Albuterol/Ipratropium NEB.SOL (2.5/0.5 MG) 3 ML NEB.SOLN INH PRN (21:25)
[2020-04-03] MEDS ORDERED: Remdesivir 5 MG/ML LIQ IV Vial 100 MG in NS 0.9% 250 ml 230 ML IV SCH (21:30)
[2020-04-03] MEDS ORDERED: Lorazepam PYXIS KEY PRN (22:42)
[2020-04-04] MEDS: Enoxaparin 40 MG/0.4 ML SYR SUBCUT SCH ×3 (00:09→22:01)
[2020-04-04] MEDS: Dexamethasone IV 4 MG/ML VIAL 1 ml VIAL IV SLOW PU SCH ×2 (00:09→21:59)
[2020-04-04] MEDS: NS 0.9% 1000 ml BAG 1,000 ML IV SCH ×3 (00:10→21:58)
[2020-04-04] MEDS ORDERED: Ondansetron 4 mg VIAL 2 MG/ML 2 ml VIAL ONE (00:52)
[2020-04-04] MEDS: Ondansetron 4 mg VIAL 2 MG/ML 2 ml VIAL IV PRN ×3 (01:00→22:23)
[2020-04-04] MEDS ORDERED: NS 0.9% 1000 ml BAG 1,000 ML IV ONE (05:19)
[2020-04-04] MEDS: LORazepam 2 mg VIAL 1 ml IV PUSH PRN ×2 (05:44→12:56)
[2020-04-04 07:52] LABS: ABS Lymphocytes 0.3 10^3/ul (1.0-4.8); ABS Neutrophils 1.5 10^3/ul (1.5-7.7); Hematocrit 36 % (35-47); Hemoglobin 12.2 g/dL (12.0-16.0); Lymphocyte % 16.3 %; Mean Corpuscular HGB Conc 34 g/dL (31-36); Mean Corpuscular Hemoglobin 31 pg (27-31); Mean Corpuscular Volume 90 fL (80-97); Mean Platelet Volume 9.2 fL (7.4-10.4); Nucleated Red Blood Cells % 0.2; Platelet Count 146 10^3/uL (150-450); Red Blood Count 3.96 10^6 /uL (3.70-4.87); Red Cell Distribution Width 13 % (10-15); White Blood Count 1.8 10^3/uL (3.5-10.8)
[2020-04-04 08:38] LABS: BUN/Creatinine Ratio 15.4 (8-20); Calcium 7.3 mg/dL (8.6-10.3); EGFR African American 167.5 (>60); EGFR Non-African American 138.5 (>60); Potassium 4.3 mmol/L (3.5-5.0)
[2020-04-04] MEDS: DROSPIRENONE PO SCH (09:01)
[2020-04-04] MEDS: ETHINYL ESTRADIOL PO SCH (09:01)
[2020-04-04] MEDS ORDERED: Remdesivir 5 MG/ML LIQ IV Vial 200 MG in NS 0.9% 250 ml 210 ML IV ONE (21:20)
[2020-04-04] MEDS: Albuterol HFA INHALER 8 gm MDI INH PRN (21:58)
[2020-04-05] MEDS: LORazepam 2 mg VIAL 1 ml IV PUSH PRN ×2 (00:22→11:49)
[2020-04-05] MEDS: Ondansetron 4 mg VIAL 2 MG/ML 2 ml VIAL IV PRN ×2 (04:49→11:51)
[2020-04-05 06:40] LABS: ABS Lymphocytes 0.7 10^3/ul (1.0-4.8); ABS Monocytes 0.2 10^3/ul (0-0.8); ABS Neutrophils 4.1 10^3/ul (1.5-7.7); Hematocrit 36 % (35-47); Hemoglobin 12.5 g/dL (12.0-16.0); Lymphocyte % 13.2 %; Mean Corpuscular HGB Conc 35 g/dL (31-36); Mean Corpuscular Hemoglobin 31 pg (27-31); Mean Corpuscular Volume 89 fL (80-97); Mean Platelet Volume 8.7 fL (7.4-10.4); Platelet Count 146 10^3/uL (150-450); Red Blood Count 4.05 10^6 /uL (3.70-4.87); Red Cell Distribution Width 13 % (10-15)
[2020-04-05 07:18] LABS: Calcium 7.7 mg/dL (8.6-10.3); EGFR African American 163.9 (>60); EGFR Non-African American 135.4 (>60); Potassium 4.2 mmol/L (3.5-5.0)
[2020-04-05] MEDS: NS 0.9% 1000 ml BAG 1,000 ML IV SCH (08:17)
[2020-04-05] MEDS: Albuterol HFA INHALER 8 gm MDI INH PRN (08:29)
[2020-04-05] MEDS: ETHINYL ESTRADIOL PO SCH (11:08)
[2020-04-05] MEDS: DROSPIRENONE PO SCH (11:08)
[2020-04-05 11:58] VITALS: BP 102/58
[2020-04-05] MEDS: Enoxaparin 40 MG/0.4 ML SYR SUBCUT SCH (12:08)
== END 2020-04-05 13:40 | disposition home or self-care (01) ==
LOC: MED 16:54 → ED 16:54 → MED 23:21
PROVIDERS: ADMIT Student in an Organized Health Care Education/Training Program; ATTEND Internal Medicine